=== PATIENT | female | born 1985 | race Caucasian/White ===

== ENCOUNTER 2017-08-25 08:00 | Outpatient (CLI) | payer OTHER | END 2017-08-25 08:01 | disposition home or self-care (01) | LOC: LAB.R 08:00 | PROVIDERS: ATTEND Nurse Practitioner Primary Care | DX: R07.89 Other chest pain (principal) | CPT/HCPCS: 84484 ==

== ENCOUNTER 2019-03-28 17:40 | Outpatient (CLI) | payer OTHER ==
--- NOTE | 2019-03-29 00:50 | XRAY Report ---
Reason: COUGH Procedure Date: 03/28/2019 Accession Number: [id number] / [id number] Procedure: XR - Chest 2 View X-Ray CPT Code: 50116 FULL RESULT: EXAM: CHEST RADIOGRAPHY EXAM DATE: 03/28/2019 05:46 PM. CLINICAL HISTORY: COUGH. Productive cough for 6 weeks. COMPARISON: None. TECHNIQUE: 2 views. FINDINGS: Lungs/Pleura: No focal opacities evident. No pleural effusion. No pneumothorax. Normal volumes. Mediastinum: Heart and mediastinal contours are unremarkable. IMPRESSION: Normal 2-view chest radiography. RADIA
== END 2019-03-28 17:41 | disposition home or self-care (01) ==
LOC: DI 17:40
PROVIDERS: ATTEND Nurse Practitioner Family
DX: R05 Cough (principal)
CPT/HCPCS: 71046

== ENCOUNTER 2019-09-17 14:07 | Outpatient (CLI) | payer OTHER ==
--- NOTE | 2019-09-17 16:21 | Ultrasound Report ---
Reason: POSITIVE TEST Procedure Date: 09/17/2019 Accession Number: [id number] / [id number] Procedure: US - OB First Trimester CPT Code: Final Report FULL RESULT: EXAM: FIRST TRIMESTER OBSTETRIC ULTRASOUND (Less than 11 weeks) EXAM DATE: 09/17/2019 02:47 PM. CLINICAL HISTORY: Positive test. LMP: 07/29/2019. COMPARISONS: None available. TECHNIQUE: Transabdominal and transvaginal ultrasound examination with static image documentation. CLINICAL DATES: EGA 7 weeks 1 day with YANNI 05/04/2020 based on LMP. ASSESSMENT: Gestational Sac: Single intrauterine. Mean gestational sac diameter: 24.3 mm = 7 weeks 3 days. Embryo: CRL (crown-rump length) 8.2 mm = 6 weeks 5 days. Cardiac activity: 139 beats per minute. Yolk sac: 2.3 mm. Amniotic fluid: Not accurately assessed at this gestational age. Early placenta: Not visible at this gestational age. Other: And inferior left perigestational collection measures 1.5 x 0.8 x 0.9 cm. MATERNAL STRUCTURES: Uterus: Anteverted. Unremarkable. Cervix: Closed. Nabothian cysts are present. Right Ovary/Adnexa: The ovary measures 3.7 x 1.9 x 1.5 cm, volume 5.4 cc. Unremarkable. Left Ovary/Adnexa: The ovary measures 2.7 x 3.6 x 2.3 cm, volume 11.8 cc. A corpus luteum measures 2 x 2.3 x 1.3 cm. Free Fluid: Present, trace volume. Other: None. IMPRESSION: 1. Single viable intrauterine at EGA 6 weeks 5 days with YANNI 05/07/2020 based on crown-rump length, which is concordant with clinical dates. 2. Assigned dating is YANNI 7 weeks 1 day based on LMP. 3. There is a small perigestational collection measuring 1.5 x 0.8 x 0.9 cm. RADIA
== END 2019-09-17 14:08 | disposition home or self-care (01) ==
LOC: DI 14:07
PROVIDERS: ATTEND Nurse Practitioner Obstetrics & Gynecology
DX: Z32.01 Encounter for pregnancy test, result positive (principal)
CPT/HCPCS: 76801; 76817

== ENCOUNTER 2019-09-22 11:15 | Outpatient (CLI) | payer OTHER ==
[2019-09-22 15:04] LABS: MUDS CUTOFF CONCENTRATIONS CUTOFF CONC BELOW:
[2019-09-22 15:29] LABS: BILIRUBIN,URINE NEGATIVE (NEGATIVE); GLUCOSE, URINE (UA) NEGATIVE (NEGATIVE); KETONES,URINE (UA) NEGATIVE (NEGATIVE); LEUKOCYTE ESTERASE, URINE NEGATIVE (NEGATIVE); NITRITE,URINE NEGATIVE (NEGATIVE); OCCULT BLOOD,URINE NEGATIVE (NEGATIVE); PROTEIN,URINE NEGATIVE (NEGATIVE); UROBILINOGEN,URINE 0.2 (NORMAL) E.U./dL (NORMAL)
[2019-09-22 15:40] LABS: CLARITY,URINE CLEAR (CLEAR)
[2019-09-22 16:08] LABS: AMPHETAMINE SCREEN,URINE NEGATIVE (NEGATIVE); BENZODIAZEPINES SCREEN, URINE NEGATIVE (NEGATIVE); COCAINE SCREEN URINE NEGATIVE (NEGATIVE); METHADONE SCREEN, URINE NEGATIVE (NEGATIVE); METHAMPHETAMINES SCREEN, URINE NEGATIVE (NEGATIVE); OPIATE SCREEN, URINE NEGATIVE (NEGATIVE); OXYCODONE SCREEN, URINE NEGATIVE (NEGATIVE); PROPOXYPHENE SCREEN, URINE NEGATIVE (NEGATIVE); TRICYCLIC ANTIDEPRESSANT,URINE NEGATIVE (NEGATIVE)
[2019-09-22 20:45] LABS: TRICHOMONAS VAGINALIS DNA NEGATIVE (NEGATIVE)
== END 2019-09-22 23:59 | disposition home or self-care (01) ==
LOC: LAB.R 11:15
PROVIDERS: ATTEND Obstetrics & Gynecology
DX: Z36.89 Encounter for other specified antenatal screening (principal); Z11.3 Encounter for screening for infections with a predominantly sexual mode of transmission
CPT/HCPCS: 80306; 81001; 81003; 87086; 87491; 87591; 87661

== ENCOUNTER 2019-10-13 08:07 | Outpatient (CLI) | payer OTHER ==
[2019-10-13 09:25] LABS: BASOPHILS % (AUTO) 0.4 %; EOSINOPHILS # (AUTO) 0.2 10^3/uL (0.0-0.7); EOSINOPHILS % (AUTO) 2.8 %; HGB - HEMOGLOBIN 12.9 g/dL (12.0-16.0); LYMPHOCYTES # (AUTO) 1.9 10^3/uL (1.5-3.5); MEAN CORPUSCULAR HEMOGLOBIN 28.1 pg (27.0-31.0); MEAN CORPUSCULAR VOLUME 85.2 fL (81.0-99.0); MEAN PLATELET VOLUME 9.8 fL (7.9-10.8); MONOCYTES # (AUTO) 0.8 10^3/uL (0.0-1.0); NEUTROPHILS # (AUTO) 4.9 10^3/uL (1.5-6.6); NEUTROPHILS % (AUTO) 62.4 %; PLT - PLATELET COUNT 255 10^3/uL (130-450); RED BLOOD COUNT 4.59 10^6/uL (4.20-5.40); WHITE BLOOD COUNT 7.8 x10^3/uL (4.8-10.8)
[2019-10-13 09:56] LABS: ALBUMIN 3.7 g/dL (3.2-5.5); ALBUMIN/GLOBULIN RATIO 1.2 (1.0-2.2); BILIRUBIN,TOTAL 0.8 mg/dL (0.2-1.0); CALCIUM 8.9 mg/dL (8.5-10.3); CREATININE 0.5 mg/dL (0.4-1.0); TOTAL PROTEIN 6.9 g/dL (6.7-8.2)
[2019-10-13 09:59] LABS: CREATININE,URINE 221.9 mg/dL; PROTEIN/CREATININE RATIO,URINE 0.1 (<=0.2)
[2019-10-13 10:09] LABS: HB2 TOTAL 13.5 g/dL; HEMOGLOBIN A1C 0.46 g/dL; HEMOGLOBIN A1C % 5.3 % (4.6-6.2)
[2019-10-14 12:39] LABS: HEPATITIS B SURFACE ANTIGEN NON-REACTIVE (NON-REACTIVE); HEPATITIS C ANTIBODY NON-REACTIVE (NON-REACTIVE)
[2019-10-14 13:35] LABS: HIV AG/AB 4TH GEN NON-REACTIVE (NON-REACTIVE)
== END 2019-10-13 08:08 | disposition home or self-care (01) ==
LOC: LAB 08:07
PROVIDERS: ATTEND Obstetrics & Gynecology
DX: R03.0 Elevated blood-pressure reading, without diagnosis of hypertension (principal); E66.9 Obesity, unspecified; Z36.89 Encounter for other specified antenatal screening
CPT/HCPCS: 36415; 80053; 81599; 82570; 83036; 84156; 84443; 85025; 86762; 86803; 86850; 86900; 86901; 87340; 87389

== ENCOUNTER 2019-11-20 12:27 | Outpatient (CLI) | payer OTHER ==
--- NOTE | 2019-11-20 14:47 | CT Report ---
Reason: WHEEZING, ASTHMA Procedure Date: 11/20/2019 Accession Number: [id number] / [id number] Procedure: CT - CHEST WO CPT Code: Final Report FULL RESULT: EXAM: CT CHEST EXAM DATE: 11/20/2019 12:59 PM. CLINICAL HISTORY: Wheezing. Asthma. COMPARISONS: None. TECHNIQUE: Routine helical CT imaging was performed through the chest. IV contrast: None. Reconstructions: Coronal and sagittal. In accordance with CT protocol optimization, one or more of the following dose reduction techniques were utilized for this exam: automated exposure control, adjustment of mA and/or KV based on patient size, or use of iterative reconstructive technique. FINDINGS: Lungs/Pleura: No consolidation, effusion, or pneumothorax. No bronchiectasis or significant bronchial wall thickening. A 5 mm average diameter pulmonary nodule is seen in the left lower lobe (image 205/4). Mediastinum: Normal. No adenopathy or masses. The heart and great vessels are normal. Bones: Unremarkable. Visualized Abdomen: Unremarkable. Other: None. IMPRESSION: 1. No acute cardiopulmonary abnormality identified. 2. Incidentally noted 5 mm left lower lobe pulmonary nodule, very likely benign. No followup is recommended per Fleischner Society guidelines assuming patient is low risk for lung cancer. RADIA
== END 2019-11-20 12:28 | disposition home or self-care (01) ==
LOC: DI 12:27
PROVIDERS: ATTEND Obstetrics & Gynecology
DX: O99.512 Diseases of the respiratory system complicating pregnancy, second trimester (principal); J45.909 Unspecified asthma, uncomplicated; Z3A.15 15 weeks gestation of pregnancy
CPT/HCPCS: 71250

== ENCOUNTER 2019-12-08 11:17 | Outpatient (CLI) | payer OTHER ==
--- NOTE | 2019-12-11 02:28 | Ultrasound Report ---
Reason: Procedure Date: 12/08/2019 Accession Number: [id number] / [id number] Procedure: US - OB Detailed Eval CPT Code: Final Report FULL RESULT: EXAM: COMPLETE OBSTETRICAL ULTRASOUND EXAM DATE: 12/08/2019 02:24 PM. CLINICAL HISTORY: anatomic survey. COMPARISON: 09/17/2019. TECHNIQUE: Real-time sonographic evaluation of the fetus performed by the rotary drier operator. Multiple fuels sales representative static images were saved for review. DATING: Established EGA 18 weeks 6 days with YANNI 05/04/2020 based on LMP. EGA 18 weeks 3 days with YANNI 05/07/2020 based on previous sonogram. EGA 19 weeks 3 days with YANNI 04/30/2020 based on the current ultrasound. GENERAL EVALUATION Gómez . Cardiac activity: 151 bpm. movement: Visualized. Presentation: Cephalic. Placenta: Anterior position. No evidence for previa. Umbilical cord: 3 vessel cord. Central placental cord origin. Amniotic fluid: Subjectively normal. MVP 4.4 cm. BIOMETRY Bi-Parietal Diameter (BPD): 4.64 cm, 20 weeks 0 days Head Circumference (HC): 16.89 cm, 19 weeks 4 days Abdominal Circumference (AC): 13.01 cm, 18 weeks 4 days Femur Length (FL): 3.06 cm, 19 weeks 3 days Estimated Weight: 272 g, 83rd percentile for 18 weeks 3 days. ANATOMY The intracranial structures, profile, face/nose/lips, 4 chamber heart and outflow tracts, stomach, abdominal wall and cord insertion, diaphragm, kidneys, bladder, and extremities were visualized and demonstrate no abnormality. Visualization of the spine is limited by positioning. MATERNAL STRUCTURES Uterus: Unremarkable. Cervix: Long and closed. Transabdominal length 5.6 cm. Right ovary/adnexa: Unremarkable. Left ovary/adnexa: Unremarkable. Free fluid: None. IMPRESSION: 1. Gómez live intrauterine with gestational age 18 weeks 3 days based on initial sonogram. 2. Estimated weight is within expected limits for assigned dating. 3. Limited visualization of the spine, secondary to positioning. Otherwise, the anatomic survey appears unremarkable. RADIA
== END 2019-12-08 11:18 | disposition home or self-care (01) ==
LOC: DI 11:17
PROVIDERS: ATTEND Obstetrics & Gynecology
DX: Z36.89 Encounter for other specified antenatal screening (principal)
CPT/HCPCS: 76811

== ENCOUNTER 2019-12-28 08:47 | Outpatient (CLI) | payer OTHER ==
--- NOTE | 2019-12-29 13:41 | Ultrasound Report ---
Reason: SCREENING, INCOMPLETE FAS Procedure Date: 12/28/2019 Accession Number: [id number] / [id number] Procedure: US - OB F/U or Repeat CPT Code: Final Report FULL RESULT: EXAM: FOLLOW-UP OBSTETRICAL ULTRASOUND EXAM DATE: 12/28/2019 08:36 AM. CLINICAL HISTORY: SCREENING, INCOMPLETE FAS. COMPARISON: OB DETAILED EVAL 12/08/2019 11:51 AM. TECHNIQUE: Real-time sonographic evaluation of the fetus performed by the sheeter machine operator. Additional transvaginal imaging to more accurately evaluate cervical length/placental position/etc. Multiple wine sales representative static images were saved for review. DATING: Established EGA 21 weeks 5 days with YANNI 05/04/2020 based on LMP/provider stated. EGA 21 weeks 2 days with YANNI 05/07/2020 based on 09/17/2019 ultrasound. GENERAL EVALUATION [place] . Cardiac activity: 160 bpm. movement: Visualized. Presentation: Cephalic. Placenta: Anterior position. Amniotic fluid: Normal. RAMÓN cm. MVP 4.25 cm. ANATOMY spine, cardiac exam (four-chamber, LVOT, RVOT, no pericardial effusion), nose lips unremarkable. IMPRESSION: 1. Gómez live intrauterine with gestational age 21 weeks 5 days based on assigned dating. 2. Follow-up shows normal spine, cardiac exam, face. RADIA
== END 2019-12-28 08:48 | disposition home or self-care (01) ==
LOC: DI 08:47
PROVIDERS: ATTEND Obstetrics & Gynecology
DX: Z36.89 Encounter for other specified antenatal screening (principal)
CPT/HCPCS: 76816

== ENCOUNTER 2020-02-02 07:39 | Outpatient (CLI) | payer OTHER ==
[2020-02-02 08:58] LABS: HGB - HEMOGLOBIN 11.1 g/dL (12.0-16.0); MEAN CORPUSCULAR HGB CONC 31.8 g/dL (32.0-36.0); MEAN CORPUSCULAR VOLUME 84.9 fL (81.0-99.0); RED BLOOD COUNT 4.11 10^6/uL (4.20-5.40); WHITE BLOOD COUNT 9.4 x10^3/uL (4.8-10.8)
[2020-02-02 09:09] LABS: ALBUMIN 3.3 g/dL (3.2-5.5); ALBUMIN/GLOBULIN RATIO 1.1 (1.0-2.2); BILIRUBIN,TOTAL 0.5 mg/dL (0.2-1.0); CALCIUM 8.5 mg/dL (8.5-10.3); CREATININE 0.4 mg/dL (0.4-1.0); TOTAL PROTEIN 6.4 g/dL (6.7-8.2); URIC ACID 3.5 mg/dL (2.6-7.2)
[2020-02-02 09:12] LABS: CREATININE,URINE 17.2 mg/dL
[2020-02-02 10:14] LABS: TOTAL PROTEIN,URINE TIMED < 6 mg/dL
== END 2020-02-02 07:40 | disposition home or self-care (01) ==
LOC: LAB 07:39
PROVIDERS: ATTEND Obstetrics & Gynecology
DX: O09.91 Supervision of high risk pregnancy, unspecified, first trimester (principal); Z3A.00 Weeks of gestation of pregnancy not specified; O26.891 Other specified pregnancy related conditions, first trimester; R03.0 Elevated blood-pressure reading, without diagnosis of hypertension
CPT/HCPCS: 36415; 80053; 82570; 82950; 84156; 84550; 85027; 86850

== ENCOUNTER 2020-02-16 07:45 | Outpatient (CLI) | payer OTHER | END 2020-02-16 07:46 | disposition home or self-care (01) | LOC: LAB 07:45 | PROVIDERS: ATTEND Obstetrics & Gynecology | DX: O09.91 Supervision of high risk pregnancy, unspecified, first trimester (principal) | CPT/HCPCS: 36415; 82951; 82952 ==

== ENCOUNTER 2020-03-08 14:59 | Outpatient (CLI) | payer OTHER ==
--- NOTE | 2020-03-08 16:40 | Ultrasound Report ---
PROCEDURE: OB F/U or Repeat INDICATIONS: GESTATIONAL DIABETES, SUPERVISION OF HIGH RISK PRE OUTSIDE/PRIOR DATING DATA: Last menstrual period (LMP): 07/29/2019. LMP-based estimated date of delivery (YANNI): 05/04/2020. First dating scan (date and location): 09/17/2019. Estimated date of delivery (YANNI) from first dating scan: 05/07/2020. TECHNIQUE: Real-time scanning was performed of the fetus, with image documentation and biometric measurements. COMPARISON: Obstetrical ultrasounds 09/17/2019, 12/08/2019 and 12/28/2019. FINDINGS: General: A single living intrauterine gestation is present. Presentation: Vertex Placenta: Placental position is anterior, without previa. Amniotic fluid index: 13.7 cm, normal is 5-24 cm. heart rate: 140 beats per minute. Maternal cervical canal: Not measured. Biophysical profile: Tone: 2 points. Movement: 2 points. Respiration: 2 points. Largest pocket of fluid: 2 points. Largest pocket 6 cm Other: Not applicable. IMPRESSION: 1. Single living intrauterine . 2. Normal amniotic fluid index. 3. Biophysical profile score 8/8. Reviewed by: Laney Schneider MD, PhD on 03/08/2020 4:38 PM PDT Approved by: Laney Schneider MD, PhD on 03/08/2020 4:38 PM PDT Station ID: [id number]
== END 2020-03-08 15:00 | disposition home or self-care (01) ==
LOC: DI 14:59
PROVIDERS: ATTEND Advanced Practice Midwife
DX: O24.419 Gestational diabetes mellitus in pregnancy, unspecified control (principal); O09.93 Supervision of high risk pregnancy, unspecified, third trimester
CPT/HCPCS: 76816

== ENCOUNTER 2020-03-08 15:50 | Outpatient (CLI) | payer OTHER ==
[2020-03-08 16:56] LABS: BASOPHILS % (AUTO) 0.1 %; EOSINOPHILS # (AUTO) 0.1 10^3/uL (0.0-0.7); EOSINOPHILS % (AUTO) 0.6 %; HGB - HEMOGLOBIN 11.4 g/dL (12.0-16.0); LYMPHOCYTES % (AUTO) 22.3 %; MEAN CORPUSCULAR HEMOGLOBIN 26.7 pg (27.0-31.0); MEAN CORPUSCULAR HGB CONC 31.8 g/dL (32.0-36.0); MEAN CORPUSCULAR VOLUME 83.8 fL (81.0-99.0); MEAN PLATELET VOLUME 10.3 fL (7.9-10.8); MONOCYTES # (AUTO) 0.8 10^3/uL (0.0-1.0); MONOCYTES % (AUTO) 9.1 %; NEUTROPHILS # (AUTO) 6.1 10^3/uL (1.5-6.6); NEUTROPHILS % (AUTO) 67.6 %; PLT - PLATELET COUNT 258 10^3/uL (130-450); RED BLOOD COUNT 4.27 10^6/uL (4.20-5.40); RED CELL DISTRIBUTION WIDTH 16.1 % (12.0-15.0); WHITE BLOOD COUNT 9.1 x10^3/uL (4.8-10.8)
[2020-03-08 17:08] LABS: ALBUMIN 3.2 g/dL (3.2-5.5); BILIRUBIN,TOTAL 0.7 mg/dL (0.2-1.0); CALCIUM 8.7 mg/dL (8.5-10.3); CREATININE 0.5 mg/dL (0.4-1.0); TOTAL PROTEIN 6.5 g/dL (6.7-8.2)
[2020-03-08 17:32] LABS: CREATININE,URINE 53.2 mg/dL
[2020-03-08 17:34] VITALS: BP 143/74
[2020-03-08 17:53] LABS: TOTAL PROTEIN,URINE TIMED < 6 mg/dL
--- NOTE | 2020-03-08 19:31 | PROCEDURE REPORT ---
- HPI Diagnosis/Indication for NST: Gestational Diabetes Current EDU 05/04/20 Gestation 31 Weeks and 6 Days 1 Para 0 Vital Signs Temperature 98.2 F 03/08/20 16:05 Heart Rate 86 03/08/20 16:05 Respiratory Rate 03/08/20 16:05 Blood Pressure 156/66 H 03/08/20 16:05 O2 Saturation 100 03/08/20 16:05 Temperature 98.2 F 03/08/20 16:05 Heart Rate 86 03/08/20 16:05 Respiratory Rate 03/08/20 16:05 Blood Pressure 143/74 H 03/08/20 17:30 O2 Saturation 100 03/08/20 16:05 - NST Procedure NST Procedure Start Date 03/08/20 Start Time 15:55 Stop Time 16:24 Vibroacoustic Stimulation Used No Patient States Movement Yes - Results and Plan Findings/Impression: Here for NST for A2GDM. Elevated BP to mild range followed by normal BP. No PIH sx. P:C neg CMP nl Hct 35, plts 258 NST category 1, toco neg chronic HTN with BP in acceptable zone Taking BPs at home. F/u in 1w.
== END 2020-03-08 18:05 | disposition home or self-care (01) ==
LOC: FBP 15:50 → WFO 15:50
PROVIDERS: ATTEND Obstetrics & Gynecology
DX: O24.415 Gestational diabetes mellitus in pregnancy, controlled by oral hypoglycemic drugs (principal); O10.913 Unspecified pre-existing hypertension complicating pregnancy, third trimester; Z3A.31 31 weeks gestation of pregnancy; O09.90 Supervision of high risk pregnancy, unspecified, unspecified trimester; Z79.84 Long term (current) use of oral hypoglycemic drugs
CPT/HCPCS: 36415; 59025; 76816; 80053; 82570; 84156; 85025

== ENCOUNTER 2020-03-14 15:26 | Outpatient (CLI) | payer OTHER ==
[2020-03-14 15:44] VITALS: BP 128/78
== END 2020-03-14 16:16 | disposition home or self-care (01) ==
LOC: FBP 15:26 → WFO 15:26
PROVIDERS: ATTEND Advanced Practice Midwife
DX: O09.93 Supervision of high risk pregnancy, unspecified, third trimester (principal); O24.419 Gestational diabetes mellitus in pregnancy, unspecified control; Z3A.00 Weeks of gestation of pregnancy not specified
CPT/HCPCS: 59025; 76816

== ENCOUNTER 2020-03-25 19:58 | Outpatient (CLI) | payer OTHER ==
[2020-03-25 21:19] VITALS: BP 128/72
--- NOTE | 2020-03-25 23:48 | PROCEDURE REPORT ---
- HPI Diagnosis/Indication for NST: Gestational Hypertension Current EDU 05/04/20 Gestation 34 Weeks and 2 Days 1 Para 1 Vital Signs Temperature 98.1 F 03/25/20 19:50 Heart Rate 78 03/25/20 19:50 Respiratory Rate 16 03/25/20 19:50 Blood Pressure 128/72 03/25/20 19:50 O2 Saturation 100 03/25/20 19:50 Temperature 98.1 F 03/25/20 19:50 Heart Rate 78 03/25/20 19:50 Respiratory Rate 16 03/25/20 19:50 Blood Pressure 128/72 03/25/20 19:50 O2 Saturation 100 03/25/20 19:50 - NST Procedure NST Procedure Start Date 03/25/20 Start Time 19:58 Stop Time 21:39 Patient States Movement Yes EFM 145 mod gabriel 15x15 accels no decels TOCO quiet - Results and Plan Findings/Impression: 34 yo at 34+2 wga with complicated by A2DM and CHTN here for NST Cat I tracing Cont with twice weekly NST and weekly RAMÓN
== END 2020-03-25 20:38 | disposition home or self-care (01) ==
LOC: WFO 19:58 → FBP 20:44 → WFO 20:44
PROVIDERS: ATTEND Obstetrics & Gynecology
DX: O13.3 Gestational [pregnancy-induced] hypertension without significant proteinuria, third trimester (principal); O10.913 Unspecified pre-existing hypertension complicating pregnancy, third trimester; Z3A.34 34 weeks gestation of pregnancy
CPT/HCPCS: 59025

== ENCOUNTER 2020-03-29 09:23 | Outpatient (CLI) | payer OTHER ==
[2020-03-29 10:19] VITALS: BP 142/77
--- NOTE | 2020-03-29 17:06 | Ultrasound Report ---
PROCEDURE: OB Limited INDICATIONS: GESTATIONAL DIABETES, SUPER OF HIGH RISK OUTSIDE/PRIOR DATING DATA: Last menstrual period (LMP): 07/29/2019. LMP-based estimated date of delivery (YANNI): 05/04/2020. First dating scan (date and location): 09/17/2019. Estimated date of delivery (YANNI) from first dating scan: 05/07/2020. TECHNIQUE: Real-time scanning was performed of the fetus, with image documentation. COMPARISON: OB ultrasound 03/23/2020 FINDINGS: A single living intrauterine gestation is present. Presentation: Cephalic Placenta: Placental position is anterior, without previa. Amniotic fluid index: 11.5 cm, 24th percentile for gestational age. heart rate: 149 beats per minutes. Maternal cervical canal: Not assessed Estimated gestational age from initial scan: 34 weeks 3 days BPP: Tone: 2 Movement: 2 Respiration: 2 Largest pocket 4.7 cm. IMPRESSION: 1. Single intrauterine with BPP of 8 out of 8. Reviewed by: Tarah Alfaro MD on 03/29/2020 5:05 PM PDT Approved by: Tarah Alfaro MD on 03/29/2020 5:05 PM PDT Station ID: [id number]
--- NOTE | 2020-03-31 04:27 | Labor Flowsheet ---
Labor Flowsheet Datetime Report Generated by CPN: 03/31/2020 04:26 Datetime: 03/31/2020 04:19 VITAL SIGNS NBP Sys/Laury/Mean (mmHg): 123 : 76 : 88 Pulse: 97 COMMUNICATION LaborFlag: Labor
== END 2020-03-29 10:45 | disposition home or self-care (01) ==
LOC: DI 09:23 → FBP 09:58 → DI 10:45
PROVIDERS: ATTEND Obstetrics & Gynecology
DX: O24.419 Gestational diabetes mellitus in pregnancy, unspecified control (principal); O09.93 Supervision of high risk pregnancy, unspecified, third trimester; Z3A.32 32 weeks gestation of pregnancy
CPT/HCPCS: 59025; 76815

== ENCOUNTER 2020-04-01 19:04 | Outpatient (CLI) | payer OTHER ==
[2020-04-01 19:30] VITALS: BP 140/70
--- NOTE | 2020-04-27 14:55 | PROCEDURE REPORT ---
- HPI Diagnosis/Indication for NST: Pre- Hypertension Current EDU 05/04/20 Gestation 35 Weeks and 2 Days 1 Para 0 Vital Signs Temperature 98.2 F 04/01/20 19:19 Heart Rate 82 04/01/20 19:19 Respiratory Rate 16 04/01/20 19:19 Blood Pressure 140/70 H 04/01/20 19:19 O2 Saturation 99 04/01/20 19:19 Temperature 98.2 F 04/01/20 19:19 Heart Rate 82 04/01/20 19:19 Respiratory Rate 16 04/01/20 19:19 Blood Pressure 140/70 H 04/01/20 19:19 O2 Saturation 99 04/01/20 19:19 - NST Procedure NST Procedure Start Date 04/01/20 Start Time 19:25 Stop Time 19:46 Vibroacoustic Stimulation Used No Patient States Movement Yes EFM 130 mod gabriel 15x15 accels no decels TOCO: quiet - Results and Plan Findings/Impression: Cat I tracing Cont with twice weekly NST and weekly RAMÓN
== END 2020-04-01 19:50 | disposition home or self-care (01) ==
LOC: WFO 19:04 → FBP 19:07 → WFO 19:50
PROVIDERS: ATTEND Obstetrics & Gynecology
DX: O10.913 Unspecified pre-existing hypertension complicating pregnancy, third trimester (principal); Z3A.35 35 weeks gestation of pregnancy
CPT/HCPCS: 59025

== ENCOUNTER 2020-04-05 09:23 | Outpatient (CLI) | payer OTHER ==
--- NOTE | 2020-04-05 15:50 | Ultrasound Report ---
PROCEDURE: OB Limited INDICATIONS: GESTATIONAL DIABETES, SUPER OF HIGH RISK OUTSIDE/PRIOR DATING DATA: Last menstrual period (LMP): 07/29/2019. LMP-based estimated date of delivery (YANNI): 05/04/2020. First dating scan (date and location): 09/17/2011. Estimated date of delivery (YANNI) from first dating scan: 05/07/2020. TECHNIQUE: Real-time scanning was performed of the fetus, with image documentation. COMPARISON: OB ultrasound 03/08/2020, , 03/23/2020, 03/29/2020 FINDINGS: A single living intrauterine gestation is present. Presentation: Cephalic Placenta: Placental position is anterior, without previa. Amniotic fluid index: 11.7 cm, 25th percentile for gestational age. Largest pocket 5.9 cm heart rate: 173 beats per minutes. Maternal cervical canal: 4.5 cm long; normal length is 2.5 cm or more. Estimated gestational age from initial scan: 33 weeks 4 days BPP: Tone: 2 Movement: 2 Respiration: 2 Largest pocket: 5.9 cm. IMPRESSION: 1. Single live intrauterine with ultrasound gestational age 33 weeks for dates. 2. BPP 8 out of 8 Reviewed by: Tarah Alfaro MD on 04/05/2020 3:49 PM PDT Approved by: Tarah Alfaro MD on 04/05/2020 3:49 PM PDT Station ID: [id number]
== END 2020-04-05 09:24 | disposition home or self-care (01) ==
LOC: DI 09:23
PROVIDERS: ATTEND Advanced Practice Midwife
DX: O24.419 Gestational diabetes mellitus in pregnancy, unspecified control (principal); O09.90 Supervision of high risk pregnancy, unspecified, unspecified trimester; Z3A.33 33 weeks gestation of pregnancy
CPT/HCPCS: 76815

== ENCOUNTER 2020-04-05 10:08 | Outpatient (CLI) | payer OTHER ==
[2020-04-05 10:40] VITALS: BP 131/73
--- NOTE | 2020-04-06 12:10 | PROCEDURE REPORT ---
- HPI Diagnosis/Indication for NST: Pre- Hypertension Current EDU 05/04/20 Gestation 35 Weeks and 6 Days 1 Para 0 Vital Signs Temperature 97.3 F L 04/05/20 10:35 Heart Rate 83 04/05/20 10:35 Respiratory Rate 16 04/05/20 10:35 Blood Pressure 131/73 H 04/05/20 10:35 O2 Saturation 100 04/05/20 10:35 Temperature 97.3 F L 04/05/20 10:35 Heart Rate 83 04/05/20 10:35 Respiratory Rate 16 04/05/20 10:35 Blood Pressure 131/73 H 04/05/20 10:35 O2 Saturation 100 04/05/20 10:35 - NST Procedure NST Procedure Start Date 04/05/20 Start Time 10:23 Stop Time 10:50 Vibroacoustic Stimulation Used No Patient States Movement No EFM 145 mod [id number] accels no decels TOCO: quiet - Results and Plan Findings/Impression: 34 yo at 35+6 with CHTN and GDM here for NST Cat I tracing Cont with weekly RAMÓN and twice weekly NST DC to home
== END 2020-04-05 10:55 | disposition home or self-care (01) ==
LOC: WFO 10:08 → FBP 10:10 → WFO 10:55
PROVIDERS: ATTEND Obstetrics & Gynecology
DX: O10.913 Unspecified pre-existing hypertension complicating pregnancy, third trimester (principal); O24.419 Gestational diabetes mellitus in pregnancy, unspecified control; Z3A.35 35 weeks gestation of pregnancy; O09.90 Supervision of high risk pregnancy, unspecified, unspecified trimester
CPT/HCPCS: 59025; 76815

== ENCOUNTER 2020-04-08 17:26 | Outpatient (CLI) | payer OTHER ==
[2020-04-08 19:23] VITALS: BP 137/75
--- NOTE | 2020-04-17 11:56 | PROCEDURE REPORT ---
- HPI Diagnosis/Indication for NST: Gestational Hypertension Current EDU 05/04/20 Gestation 36 Weeks and 2 Days 1 Para 0 Vital Signs Temperature 36.8 C 04/08/20 17:43 Heart Rate 86 04/08/20 17:43 Respiratory Rate 18 04/08/20 17:43 O2 Saturation 100 04/08/20 17:43 Temperature 36.8 C 04/08/20 17:43 Heart Rate 86 04/08/20 17:43 Respiratory Rate 18 04/08/20 17:43 Blood Pressure 137/75 H 04/08/20 18:05 O2 Saturation 100 04/08/20 17:43 - NST Procedure NST Procedure Start Date 04/08/20 Start Time 18:20 Stop Time 18:40 Vibroacoustic Stimulation Used Yes: Prior at 17:59, then immediately followed by 30 sec variable decel Patient States Movement Yes - Results and Plan Findings/Impression: REACTIVE NST WITH SOLITARY VARIABLE DECELERATION Plan: CONTINUE ANTINATAL TESTING
--- NOTE | 2020-04-17 11:59 | PROCEDURE REPORT ---
- HPI Current EDU 05/04/20 Gestation 36 Weeks and 2 Days 1 Para 0 Vital Signs Temperature 36.8 C 04/08/20 17:43 Heart Rate 86 04/08/20 17:43 Respiratory Rate 18 04/08/20 17:43 O2 Saturation 100 04/08/20 17:43 Temperature 36.8 C 04/08/20 17:43 Heart Rate 86 04/08/20 17:43 Respiratory Rate 18 04/08/20 17:43 Blood Pressure 137/75 H 04/08/20 18:05 O2 Saturation 100 04/08/20 17:43 - NST Procedure NST Procedure Start Date 04/08/20 Start Time 18:20 Stop Time 18:40 Vibroacoustic Stimulation Used Yes: Prior at 17:59, then immediately followed by 30 sec variable decel Patient States Movement Yes - Results and Plan Findings/Impression: REACTIVE NST Plan: CONTINUE TESTING
--- NOTE | 2020-04-17 12:03 | PROCEDURE REPORT ---
- HPI Diagnosis/Indication for NST: Gestational Diabetes Current EDU 05/04/20 Gestation 36 Weeks and 2 Days 1 Para 0 Vital Signs Temperature 36.8 C 04/08/20 17:43 Heart Rate 86 04/08/20 17:43 Respiratory Rate 18 04/08/20 17:43 O2 Saturation 100 04/08/20 17:43 Temperature 36.8 C 04/08/20 17:43 Heart Rate 86 04/08/20 17:43 Respiratory Rate 18 04/08/20 17:43 Blood Pressure 137/75 H 04/08/20 18:05 O2 Saturation 100 04/08/20 17:43 - NST Procedure NST Procedure Start Date 04/08/20 Start Time 18:20 Stop Time 18:40 Vibroacoustic Stimulation Used Yes: Prior at 17:59, then immediately followed by 30 sec variable decel Patient States Movement Yes - Results and Plan Findings/Impression: REACTIVE NST Plan: CONTINUE TESTING
== END 2020-04-08 18:55 | disposition home or self-care (01) ==
LOC: WFO 17:26 → FBP 17:29 → WFO 18:55
PROVIDERS: ATTEND Obstetrics & Gynecology
DX: O13.3 Gestational [pregnancy-induced] hypertension without significant proteinuria, third trimester (principal); Z3A.36 36 weeks gestation of pregnancy
CPT/HCPCS: 59025

== ENCOUNTER 2020-04-12 09:04 | Outpatient (CLI) | payer OTHER ==
[2020-04-12 10:18] VITALS: BP 138/69
--- NOTE | 2020-04-12 16:28 | Ultrasound Report ---
PROCEDURE: OB Biophysical Profile INDICATIONS: BPP RAMÓN.DGM OUTSIDE/PRIOR DATING DATA: Last menstrual period (LMP): 07/19/2019. LMP-based estimated date of delivery (YANNI): 05/04/2020. First dating scan (date and location): 09/17/2019. Estimated date of delivery (YANNI) from first dating scan: 05/07/2020. TECHNIQUE: Real-time scanning was performed of the fetus, with image documentation and biometric josh surements. Biophysical profile was also obtained. Endovaginal scanning: Performed COMPARISON: 04/05/2020, 03/29/2020, 03/23/2020, 03/14/2020, 03/08/2020, 12/28/2019, 12/08/2019, and 09/17/2019 FINDINGS: General: A single living intrauterine gestation is present. Presentation: Cephalic Placenta: Placental position is anterior, without previa. Amniotic fluid index: 10.1 cm, 17th percentile for gestational age. heart rate: 155 beats per minute. Maternal cervical canal: ] And 4.4 cm long; normal length is 2.5 cm or more. Biophysical profile: Tone: 2 points. Movement: 2 points. Respiration: 2 points. Largest pocket of fluid: 2 points. IMPRESSION: 1. Single living intrauterine . 2. Biophysical profile score 8 out of 8. 3. Amniotic fluid index 10.1 cm, 17th percentile for gestational age. Reviewed by: Laney Schneider MD, PhD on 04/12/2020 4:27 PM PDT Approved by: Laney Schneider MD, PhD on 04/12/2020 4:27 PM PDT Station ID: [id number]
--- NOTE | 2020-04-12 17:32 | PROCEDURE REPORT ---
- HPI Diagnosis/Indication for NST: Gestational Diabetes Current EDU 05/04/20 Gestation 36 Weeks and 6 Days 1 Para 0 Vital Signs Temperature 97.7 F 04/12/20 10:16 Heart Rate 76 04/12/20 10:16 Respiratory Rate 16 04/12/20 10:16 Blood Pressure 138/69 H 04/12/20 10:16 O2 Saturation 100 04/12/20 10:16 Temperature 97.7 F 04/12/20 10:16 Heart Rate 76 04/12/20 10:16 Respiratory Rate 16 04/12/20 10:16 Blood Pressure 138/69 H 04/12/20 10:16 O2 Saturation 100 04/12/20 10:16 - NST Procedure NST Procedure Start Date 04/12/20 Start Time 10:10 Stop Time 10:40 Vibroacoustic Stimulation Used No Patient States Movement No - Results and Plan Findings/Impression: Category 1 NST [place] neg Continue planned surveillance
== END 2020-04-12 10:45 | disposition home or self-care (01) ==
LOC: DI 09:04 → FBP 09:57 → DI 10:45
PROVIDERS: ATTEND Obstetrics & Gynecology
DX: O24.419 Gestational diabetes mellitus in pregnancy, unspecified control (principal); O09.93 Supervision of high risk pregnancy, unspecified, third trimester
CPT/HCPCS: 59025; 76819

== ENCOUNTER 2020-04-15 17:36 | Outpatient (CLI) | payer OTHER ==
[2020-04-15 17:53] VITALS: BP 143/80
--- NOTE | 2020-04-15 18:47 | PROCEDURE REPORT ---
- HPI Diagnosis/Indication for NST: Gestational Diabetes Current EDU 05/04/20 Gestation 37 Weeks and 2 Days 1 Para 0 Vital Signs Temperature 97.9 F 04/15/20 17:52 Heart Rate 80 04/15/20 17:52 Respiratory Rate 18 04/15/20 17:52 Blood Pressure 143/80 H 04/15/20 17:52 O2 Saturation 100 04/15/20 17:52 Temperature 97.9 F 04/15/20 17:52 Heart Rate 81 04/15/20 17:54 Respiratory Rate 18 04/15/20 17:54 Blood Pressure 143/80 H 04/15/20 17:54 O2 Saturation 100 04/15/20 17:54 - NST Procedure NST Procedure Start Date 04/15/20 Start Time 17:46 Stop Time 18:08 Patient States Movement Yes - Results and Plan Findings/Impression: Category 1 NST [place] occasional contractions Plan: continue routine surveillance
== END 2020-04-15 18:15 | disposition home or self-care (01) ==
LOC: WFO 17:36 → FBP 17:38 → WFO 18:15
PROVIDERS: ATTEND Obstetrics & Gynecology
DX: O24.419 Gestational diabetes mellitus in pregnancy, unspecified control (principal); Z3A.37 37 weeks gestation of pregnancy
CPT/HCPCS: 59025

== ENCOUNTER 2020-04-22 17:36 | Outpatient (CLI) | payer OTHER ==
[2020-04-22 18:01] VITALS: BP 130/64
--- NOTE | 2020-06-12 09:21 | PROCEDURE REPORT ---
- HPI Diagnosis/Indication for NST: Gestational Diabetes Current EDU 05/04/20 Gestation 38 Weeks and 2 Days 1 Para 0 Vital Signs Temperature 99.0 F 04/22/20 18:00 Heart Rate 83 04/22/20 18:00 Respiratory Rate 18 04/22/20 18:00 Blood Pressure 130/64 04/22/20 18:00 O2 Saturation 100 04/22/20 18:00 Temperature 99.0 F 04/22/20 18:00 Heart Rate 83 04/22/20 18:00 Respiratory Rate 18 04/22/20 18:00 Blood Pressure 130/64 04/22/20 18:00 O2 Saturation 100 04/22/20 18:00 - NST Procedure NST Procedure Start Date 04/22/20 Start Time 17:51 Stop Time 18:20 Vibroacoustic Stimulation Used No Patient States Movement Yes - Results and Plan Findings/Impression: CAtegory 1 NST Continue planned surveillance
== END 2020-04-22 18:32 | disposition home or self-care (01) ==
LOC: WFO 17:36 → FBP 17:39 → WFO 18:32
PROVIDERS: ATTEND Obstetrics & Gynecology
DX: O24.419 Gestational diabetes mellitus in pregnancy, unspecified control (principal); Z3A.38 38 weeks gestation of pregnancy
CPT/HCPCS: 59025

== ENCOUNTER 2020-04-26 09:44 | Outpatient (CLI) | payer OTHER ==
[2020-04-26 10:57] VITALS: BP 132/77
--- NOTE | 2020-04-26 13:56 | Ultrasound Report ---
PROCEDURE: OB Limited INDICATIONS: GESTATIONAL DIABETES, SUPER OF HIGH RISK OUTSIDE/PRIOR DATING DATA: Last menstrual period (LMP): 07/29/2019. LMP-based estimated date of delivery (YANNI): 05/04/2020. First dating scan (date and location): 09/17/2019. Estimated date of delivery (YANNI) from first dating scan: 05/07/2020. TECHNIQUE: Real-time scanning was performed of the fetus, with image documentation. Biophysical profile was obt ained. Endovaginal scanning: Not performed COMPARISON: Most recent from 04/19/2020 FINDINGS: A single living intrauterine gestation is present. Presentation: Cephalic Placenta: Placental position is anterior, without previa. Amniotic fluid index: 10.7 cm, 26th percentile for gestational age. heart rate: 151 beats per minutes. Maternal cervical canal: Not seen due to positioning Biophysical profile: Tone: 2 out of 2 Movement: 2 out of 2 Respiration: 2 out of 2 Amniotic fluid index 2 out of 2 (deepest pocket is 7.5 cm) Total score 8 out of 8. IMPRESSION: 1. Single living intrauterine in cephalic presentation. 2. Normal biophysical profile score. 3. Amniotic fluid index is 10.7 cm with maximum pocket is 7.5 cm. Reviewed by: Judith Slade MD on 04/26/2020 1:55 PM PDT Approved by: Judith Slade MD on 04/26/2020 1:55 PM PDT Station ID: [id number]
== END 2020-04-26 11:07 | disposition home or self-care (01) ==
LOC: DI 09:44 → FBP 10:20 → DI 11:07
PROVIDERS: ATTEND Advanced Practice Midwife
DX: O24.419 Gestational diabetes mellitus in pregnancy, unspecified control (principal); O09.90 Supervision of high risk pregnancy, unspecified, unspecified trimester; Z3A.00 Weeks of gestation of pregnancy not specified
CPT/HCPCS: 59025; 76815

== ENCOUNTER 2020-04-29 07:20 | Inpatient (IN) | payer OTHER ==
[2020-04-29] MEDS ORDERED: fentaNYL 100 MCG/2 ML VIAL IVP PRN (08:08)
[2020-04-29] MEDS ORDERED: LABETALOL 5 MG/1 ML 20 ML MDV IVP PRN (08:08)
[2020-04-29] MEDS ORDERED: CARBOPROST TROMETHAMINE 250 MCG/ML AMP IM PRN ×2 (08:08)
[2020-04-29] MEDS ORDERED: OXYTOCIN/SODIUM CHLORIDE 500 ML IV PRN ×2 (08:08)
[2020-04-29] MEDS ORDERED: ACETAMINOPHEN 325 MG TABLET PO PRN (08:08)
[2020-04-29] MEDS ORDERED: LIDOCAINE-MPF 1% 30 ML VIAL ID PRN (08:08)
[2020-04-29] MEDS ORDERED: miSOPROStoL 200 MCG TABLET BC PRN (08:08)
[2020-04-29] MEDS ORDERED: TRANEXAMIC ACID 1,000 MG in SODIUM CHLORIDE 0.9% 100ML 100 ML IV PRN (08:08)
[2020-04-29] MEDS ORDERED: miSOPROStoL 200 MCG TABLET BC ONE (08:08)
[2020-04-29] MEDS ORDERED: ONDANSETRON ODT 4 MG TABLET TL PRN (08:08)
[2020-04-29] MEDS ORDERED: TERBUTALINE 1 MG/ML VIAL SUBQ PRN (08:08)
[2020-04-29] MEDS ORDERED: SODIUM CHLORIDE FLUSH 0.9% 10 ML SYRINGE IVP PRN (08:08)
[2020-04-29] MEDS ORDERED: ONDANSETRON 4 MG/2 ML VIAL IVP PRN (08:08)
[2020-04-29] MEDS ORDERED: OXYTOCIN 10 UNIT/ML VIAL IM PRN (08:08)
--- NOTE | 2020-04-29 08:21 | HISTORY & PHYSICAL EXAMINATION ---
Admit History - Visit Reason Visit Reason: Other (IOl of labor) - : 1 Parity: 0 Care: positive: [facility] Risk/History: positive: Gestational diabetes, Other (CHTN) Complications This : positive: Gestational diabetes, Chronic HTN Smoking Status: Never smoker - Mother's Labs Mother's Blood Type: positive: A Mother's RH: positive: Positive GBS: positive: Group B Step Negative Rubella Status: positive: Immune - Other Maternal History Other Maternal History: Patient is a 34 yo at 39+2 wga with complicated by A2DM and chronic HTN. GDM oderately controlled with pp within range. FBG have been slightly elevated on glyburide 7.5 mg QHS and metformin 1000 mg with dinner. Patient had failed trial of NPH, reaching a nightly dose of 18 units without any change in FBG. BPs have remained in high normal range without medications. Patient presents for IOL. No LOF/VB/CTX. + FM EFW is 90%ile DATING: LMP 07/29/19--> YANNI 05/04/20 (definitive) US on 09/17/19 at 6w5d given YANNI 05/07/20--. cwd CHTN: Tracking BP -On ASA -No antihypertensives at present -IOL at 39 weeks in absence of GOSIA No PIH symptoms - BPs at home 130s/80s -Baseline P:C wnl GDM: On glyburide 7.5 mg QHS and metformin 1000 mg po with dinner. Glyburide held last night mild initial improvement on glyburide beyond that achieved with metformin PP all wnl -Recommend twice weekly NST and weekly RAMÓN rather than weekly BPP given poor control at present -Q4 week growth us 03/14/2020 53%ile 04/19/2020 90%ile A pos/Rub imm [place] 46 XY, msAFP ordered; not completed FAS: anterior, CL 5.6 EFW 83%ile 3VC, FAS wnl HbA1c 5.35 TSH 1.8 TDAP complete Glucola 146, 3H 120, 185, 119, 84 Breast pump RX: given Flu: given early in season HSV: denies GBS neg GCCT neg MOD: IOL at 39 weeks. Switched to glyburide, no insulin at present Pap wnl 08/02; needs repeat in 2023 Meds/Allgy - Home Medications Home Medications: Ambulatory Orders Medication Instructions Recorded Confirmed Albuterol Sulfate 1.25 mg IH Q4H PRN 02/28/20 02/28/20 Aspirin [Adult Low Dose Aspirin EC] 81 mg PO DAILY 02/28/20 02/28/20 Cetirizine HCl [Zyrtec] 10 mg PO DAILY 02/28/20 02/28/20 Cholecalciferol (Vitamin D3) 25 mcg PO DAILY 02/28/20 02/28/20 [Vitamin D3] Pnv No.95/Ferrous Fum/Folic AC 1 tab PO DAILY 02/28/20 02/28/20 [ Formula Tablet] Ranitidine 1 tab PO BID PRN 02/28/20 - Allergies Allergies/Adverse Reactions: Allergies Allergy/AdvReac Type Severity Reaction Status Date / Time amoxicillin [From Augmentin] Allergy Unknown Verified 02/28/20 11:22 clavulanic acid Allergy Unknown Verified 02/28/20 11:22 [From Augmentin] levofloxacin [From Levaquin] Allergy Unknown Verified 02/28/20 11:22 Review of Systems - Other Findings Other Findings: As per HPI, otherwise remaining systems are negative. Physical - Abdominal Exam Vital Signs: 142/67 18 81 Contraction Frequency (min/apart): quiet - Monitoring Heart Rate Baseline: 130 mod gabriel 15x15 accels no decels Strip Review: positive: Category I - Presentation Presentation: positive: Vertex - Vaginal Exam Membranes: positive: Membranes intact Dilation (in cm): FT Effacement (%): 70 Station: positive: -2 Cervical Position: positive: Posterior Plan for Labor - Plan For Labor Plan for Labor: IOL at 39+2 wga for A2DM and CHTN IOL: Unfavorable cervix -Misoprostol for cervical ripening -Consider Keita balloon -Pitocin when favorable -AROM as indicated A2DM: On glyburide and metformin -Holding both medications while in-patient -Will use SSI if blood sugars are elevated CHTN: Mildly elevated BP at admission -P:C wnl -PIH labs wnl -No PIH symptoms -Q15 min BP checks at admission then Q2H if consistently wnl -Avoid methergine in setting of PPH FWB: Vertex, GBS neg, EFW 90%ile, Cat I tracing -cEFM PAIN: -Fentanyl 50 mcg IV as needed to max of 4 doses and not to be given after 7 cm -Epidural as desired Anticipate Prepare for hypoglycemia after delivery. Inpatient care
[2020-04-29] MEDS: miSOPROStoL 100 MCG TABLET BC SCH ×3 (09:04→18:22)
[2020-04-29 09:14] LABS: BASOPHILS % (AUTO) 0.3 %; EOSINOPHILS % (AUTO) 0.4 %; HGB - HEMOGLOBIN 11.2 g/dL (12.0-16.0); LYMPHOCYTES # (AUTO) 1.9 10^3/uL (1.5-3.5); LYMPHOCYTES % (AUTO) 18.4 %; MEAN CORPUSCULAR HGB CONC 31.7 g/dL (32.0-36.0); MEAN CORPUSCULAR VOLUME 81.9 fL (81.0-99.0); MEAN PLATELET VOLUME 10.9 fL (7.9-10.8); MONOCYTES # (AUTO) 0.9 10^3/uL (0.0-1.0); MONOCYTES % (AUTO) 8.9 %; NEUTROPHILS # (AUTO) 7.2 10^3/uL (1.5-6.6); NEUTROPHILS % (AUTO) 71.6 %; PLT - PLATELET COUNT 274 10^3/uL (130-450); RED BLOOD COUNT 4.31 10^6/uL (4.20-5.40); RED CELL DISTRIBUTION WIDTH 16.2 % (12.0-15.0); WHITE BLOOD COUNT 10.1 x10^3/uL (4.8-10.8)
[2020-04-29 09:20] LABS: CREATININE 0.5 mg/dL (0.4-1.0); URIC ACID 4.3 mg/dL (2.6-7.2)
[2020-04-29 09:31] LABS: CREATININE,URINE 99.8 mg/dL; PROTEIN/CREATININE RATIO,URINE 0.1 (<=0.2)
[2020-04-29] MEDS: LACTATED RINGERS 1,000 ML IV SCH (18:08)
--- NOTE | 2020-04-29 18:56 | PROVIDER PROGRESS NOTE ---
Subjective - Prog Note Date Prog Note Date: 04/29/20 Prog Note Time: 18:54 - Subjective Subjective: Feeling contractions, rated 1-2/10. No LOF or VB. Has had 2 doses of miso. Objective - Vital Signs/Intake & Output Reviewed Vital Signs: Yes Vital Signs: Vital Signs x48h Temp BP 04/29/20 13:05 140/70 H 04/29/20 13:00 97.6 F L 143/68 H Intake & Output: Intake & Output 04/26/20 04/27/20 04/28/20 04/29/20 23:59 23:59 23:59 23:59 Intake Total 349.65 Balance 349.65 - Objective General Appearance: positive: No acute distress Respiratory: positive: No respiratory distress Cardiovascular: positive: Other (RR) Abdomen: positive: Non-tender Skin: positive: Color nml Extremities: positive: No pedal edema Neurologic/Psychiatric: positive: Oriented x3 Comments/Other: SVE FT/70/-2/posterior/medium EFM 135 mod gabriel 15x15 accels, no decels at current Currently Cat I tracing Period of intermittent variables, now resolved Had 250 cc fluid bolus TOCO: intermittent - Lab Results Fish Bones: 04/29/20 09:04 04/29/20 09:04 Other Labs: Lab Results x24hrs 04/29/20 04/29/20 04/29/20 Range/Units 09:04 09:04 09:04 WBC (4.8-10.8) x10^3/uL RBC (4.20-5.40) 10^6/uL Hgb (12.0-16.0) g/dL Hct (37.0-47.0) % MCV (81.0-99.0) fL MCH (27.0-31.0) pg MCHC (32.0-36.0) g/dL RDW (12.0-15.0) % Plt Count (130-450) 10^3/uL MPV (7.9-10.8) fL Neut # (Auto) (1.5-6.6) 10^3/uL Lymph # (Auto) (1.5-3.5) 10^3/uL [place] # (Auto) (0.0-1.0) 10^3/uL Eos # (Auto) (0.0-0.7) 10^3/uL Baso # (Auto) (0.0-0.1) 10^3/uL Absolute Nucleated RBC x10^3/uL Nucleated RBC % /100WBC Creatinine (0.4-1.0) mg/dL Estimated GFR (MDRD) (>89) Glucose 100 (70-100) mg/dL Uric Acid (2.6-7.2) mg/dL AST (10-42) IU/L ALT (10-60) IU/L Urine Creatinine 99.8 mg/dL Ur Total Protein Timed 9 mg/dL Protein/Creatinin Ratio 0.1 (<=0.2) Blood Type A POSITIVE Antibody Screen NEGATIVE 04/29/20 04/29/20 Range/Units 09:04 09:04 WBC 10.1 (4.8-10.8) x10^3/uL RBC 4.31 (4.20-5.40) 10^6/uL Hgb 11.2 L (12.0-16.0) g/dL Hct 35.3 L (37.0-47.0) % MCV 81.9 (81.0-99.0) fL MCH 26.0 L (27.0-31.0) pg MCHC 31.7 L (32.0-36.0) g/dL RDW 16.2 H (12.0-15.0) % Plt Count 274 (130-450) 10^3/uL MPV 10.9 H (7.9-10.8) fL Neut # (Auto) 7.2 H (1.5-6.6) 10^3/uL Lymph # (Auto) 1.9 (1.5-3.5) 10^3/uL [place] # (Auto) 0.9 (0.0-1.0) 10^3/uL Eos # (Auto) 0.0 (0.0-0.7) 10^3/uL Baso # (Auto) 0.0 (0.0-0.1) 10^3/uL Absolute Nucleated RBC 0.00 x10^3/uL Nucleated RBC % 0.0 /100WBC Creatinine 0.5 (0.4-1.0) mg/dL Estimated GFR (MDRD) 140 (>89) Glucose (70-100) mg/dL Uric Acid 4.3 (2.6-7.2) mg/dL AST 21 (10-42) IU/L ALT 30 (10-60) IU/L Urine Creatinine mg/dL Ur Total Protein Timed mg/dL Protein/Creatinin Ratio (<=0.2) Blood Type Antibody Screen Assessment/Plan - Problem List (1) Encounter for induction of labor Impression: IOL: S/p miso 50 mcg BC x2 -Just received 3rd dose -Current exam not amenable to Keita balloon placement -Cont with cervical ripening FWB: Periods of Cat II tracing with intermittent decels, currently resolved -Received 250 cc fluid bolus -Currently Cat I tracing -CEFM CHTN: BPs in mild range -PIH labs wnl -No PIH symptoms -Will treat for severe range pressures GDM: Holding metformin and glyburide -BG less than 120 at two measures taken in-patient -Cont with fasting and 1 hour PP until NPO, then Q2H Anticipate
[2020-04-29] MEDS ORDERED: OXYTOCIN/SODIUM CHLORIDE 500 ML IV SCH (22:00)
--- NOTE | 2020-04-29 22:34 | PROVIDER PROGRESS NOTE ---
Subjective - Prog Note Date Prog Note Date: 04/29/20 Prog Note Time: 22:30 - Subjective Subjective: Patient had had 3 doses of miso 50 mcg BC Due for 4th dose at approximately 22:15. From 21:50 to ~22:00, EFM showed run of variables Now Cat I tracing for 30 minutes 145 mod gabriel 15x15 accels no decels TOCO: quiet Resting for one hour Starting low dose pitocin after period of rest Anticipate Objective - Vital Signs/Intake & Output Intake & Output: Intake & Output 04/26/20 04/27/20 04/28/20 04/29/20 23:59 23:59 23:59 23:59 Intake Total 349.65 Balance 349.65 - Lab Results Fish Bones: 04/29/20 09:04 04/29/20 09:04 Other Labs: Lab Results x24hrs 04/29/20 04/29/20 04/29/20 Range/Units 09:04 09:04 09:04 WBC (4.8-10.8) x10^3/uL RBC (4.20-5.40) 10^6/uL Hgb (12.0-16.0) g/dL Hct (37.0-47.0) % MCV (81.0-99.0) fL MCH (27.0-31.0) pg MCHC (32.0-36.0) g/dL RDW (12.0-15.0) % Plt Count (130-450) 10^3/uL MPV (7.9-10.8) fL Neut # (Auto) (1.5-6.6) 10^3/uL Lymph # (Auto) (1.5-3.5) 10^3/uL [place] # (Auto) (0.0-1.0) 10^3/uL Eos # (Auto) (0.0-0.7) 10^3/uL Baso # (Auto) (0.0-0.1) 10^3/uL Absolute Nucleated RBC x10^3/uL Nucleated RBC % /100WBC Creatinine (0.4-1.0) mg/dL Estimated GFR (MDRD) (>89) Glucose 100 (70-100) mg/dL Uric Acid (2.6-7.2) mg/dL AST (10-42) IU/L ALT (10-60) IU/L Urine Creatinine 99.8 mg/dL Ur Total Protein Timed 9 mg/dL Protein/Creatinin Ratio 0.1 (<=0.2) Blood Type A POSITIVE Antibody Screen NEGATIVE 04/29/20 04/29/20 Range/Units 09:04 09:04 WBC 10.1 (4.8-10.8) x10^3/uL RBC 4.31 (4.20-5.40) 10^6/uL Hgb 11.2 L (12.0-16.0) g/dL Hct 35.3 L (37.0-47.0) % MCV 81.9 (81.0-99.0) fL MCH 26.0 L (27.0-31.0) pg MCHC 31.7 L (32.0-36.0) g/dL RDW 16.2 H (12.0-15.0) % Plt Count 274 (130-450) 10^3/uL MPV 10.9 H (7.9-10.8) fL Neut # (Auto) 7.2 H (1.5-6.6) 10^3/uL Lymph # (Auto) 1.9 (1.5-3.5) 10^3/uL [place] # (Auto) 0.9 (0.0-1.0) 10^3/uL Eos # (Auto) 0.0 (0.0-0.7) 10^3/uL Baso # (Auto) 0.0 (0.0-0.1) 10^3/uL Absolute Nucleated RBC 0.00 x10^3/uL Nucleated RBC % 0.0 /100WBC Creatinine 0.5 (0.4-1.0) mg/dL Estimated GFR (MDRD) 140 (>89) Glucose (70-100) mg/dL Uric Acid 4.3 (2.6-7.2) mg/dL AST 21 (10-42) IU/L ALT 30 (10-60) IU/L Urine Creatinine mg/dL Ur Total Protein Timed mg/dL Protein/Creatinin Ratio (<=0.2) Blood Type Antibody Screen
--- NOTE | 2020-04-30 03:20 | PROVIDER PROGRESS NOTE ---
Subjective - Prog Note Date Prog Note Date: 04/30/20 Prog Note Time: 03:17 - Subjective Subjective: Low dose pitocin had been stopped at 00:40 after run of Cat II tracing Provider not informed. Currently restarting pitocin at low dose for continued cervical ripening Current EFM 145 mod gabriel 15x15 accels no decels TOCO: quiet Cat I tracing at present Restarting pitocin Objective - Vital Signs/Intake & Output Intake & Output: Intake & Output 04/27/20 04/28/20 04/29/20 04/30/20 23:59 23:59 23:59 23:59 Intake Total 349.65 Balance 349.65 - Lab Results Fish Bones: 04/29/20 09:04 04/29/20 09:04 Other Labs: Lab Results x24hrs 04/29/20 04/29/20 04/29/20 Range/Units 09:04 09:04 09:04 WBC (4.8-10.8) x10^3/uL RBC (4.20-5.40) 10^6/uL Hgb (12.0-16.0) g/dL Hct (37.0-47.0) % MCV (81.0-99.0) fL MCH (27.0-31.0) pg MCHC (32.0-36.0) g/dL RDW (12.0-15.0) % Plt Count (130-450) 10^3/uL MPV (7.9-10.8) fL Neut # (Auto) (1.5-6.6) 10^3/uL Lymph # (Auto) (1.5-3.5) 10^3/uL [place] # (Auto) (0.0-1.0) 10^3/uL Eos # (Auto) (0.0-0.7) 10^3/uL Baso # (Auto) (0.0-0.1) 10^3/uL Absolute Nucleated RBC x10^3/uL Nucleated RBC % /100WBC Creatinine (0.4-1.0) mg/dL Estimated GFR (MDRD) (>89) Glucose 100 (70-100) mg/dL Uric Acid (2.6-7.2) mg/dL AST (10-42) IU/L ALT (10-60) IU/L Urine Creatinine 99.8 mg/dL Ur Total Protein Timed 9 mg/dL Protein/Creatinin Ratio 0.1 (<=0.2) Blood Type A POSITIVE Antibody Screen NEGATIVE 04/29/20 04/29/20 Range/Units 09:04 09:04 WBC 10.1 (4.8-10.8) x10^3/uL RBC 4.31 (4.20-5.40) 10^6/uL Hgb 11.2 L (12.0-16.0) g/dL Hct 35.3 L (37.0-47.0) % MCV 81.9 (81.0-99.0) fL MCH 26.0 L (27.0-31.0) pg MCHC 31.7 L (32.0-36.0) g/dL RDW 16.2 H (12.0-15.0) % Plt Count 274 (130-450) 10^3/uL MPV 10.9 H (7.9-10.8) fL Neut # (Auto) 7.2 H (1.5-6.6) 10^3/uL Lymph # (Auto) 1.9 (1.5-3.5) 10^3/uL [place] # (Auto) 0.9 (0.0-1.0) 10^3/uL Eos # (Auto) 0.0 (0.0-0.7) 10^3/uL Baso # (Auto) 0.0 (0.0-0.1) 10^3/uL Absolute Nucleated RBC 0.00 x10^3/uL Nucleated RBC % 0.0 /100WBC Creatinine 0.5 (0.4-1.0) mg/dL Estimated GFR (MDRD) 140 (>89) Glucose (70-100) mg/dL Uric Acid 4.3 (2.6-7.2) mg/dL AST 21 (10-42) IU/L ALT 30 (10-60) IU/L Urine Creatinine mg/dL Ur Total Protein Timed mg/dL Protein/Creatinin Ratio (<=0.2) Blood Type Antibody Screen
--- NOTE | 2020-04-30 04:25 | PROVIDER PROGRESS NOTE ---
Subjective - Prog Note Date Prog Note Date: 04/30/20 Prog Note Time: 04:22 - Subjective Subjective: Keita balloon placed with 60 cc in each balloon Pit at 1 mU/min SVE 2/80/-2/soft/mid-post EFM 150 mod gabriel 15x15 accels intermittent decels, none in last 20 min TOCO: Q3-4 Cat I tracing Anticipate Objective - Vital Signs/Intake & Output Intake & Output: Intake & Output 04/27/20 04/28/20 04/29/20 04/30/20 23:59 23:59 23:59 23:59 Intake Total 349.65 Balance 349.65 - Lab Results Fish Bones: 04/29/20 09:04 04/29/20 09:04 Other Labs: Lab Results x24hrs 04/29/20 04/29/20 04/29/20 Range/Units 09:04 09:04 09:04 WBC (4.8-10.8) x10^3/uL RBC (4.20-5.40) 10^6/uL Hgb (12.0-16.0) g/dL Hct (37.0-47.0) % MCV (81.0-99.0) fL MCH (27.0-31.0) pg MCHC (32.0-36.0) g/dL RDW (12.0-15.0) % Plt Count (130-450) 10^3/uL MPV (7.9-10.8) fL Neut # (Auto) (1.5-6.6) 10^3/uL Lymph # (Auto) (1.5-3.5) 10^3/uL [place] # (Auto) (0.0-1.0) 10^3/uL Eos # (Auto) (0.0-0.7) 10^3/uL Baso # (Auto) (0.0-0.1) 10^3/uL Absolute Nucleated RBC x10^3/uL Nucleated RBC % /100WBC Creatinine (0.4-1.0) mg/dL Estimated GFR (MDRD) (>89) Glucose 100 (70-100) mg/dL Uric Acid (2.6-7.2) mg/dL AST (10-42) IU/L ALT (10-60) IU/L Urine Creatinine 99.8 mg/dL Ur Total Protein Timed 9 mg/dL Protein/Creatinin Ratio 0.1 (<=0.2) Blood Type A POSITIVE Antibody Screen NEGATIVE 04/29/20 04/29/20 Range/Units 09:04 09:04 WBC 10.1 (4.8-10.8) x10^3/uL RBC 4.31 (4.20-5.40) 10^6/uL Hgb 11.2 L (12.0-16.0) g/dL Hct 35.3 L (37.0-47.0) % MCV 81.9 (81.0-99.0) fL MCH 26.0 L (27.0-31.0) pg MCHC 31.7 L (32.0-36.0) g/dL RDW 16.2 H (12.0-15.0) % Plt Count 274 (130-450) 10^3/uL MPV 10.9 H (7.9-10.8) fL Neut # (Auto) 7.2 H (1.5-6.6) 10^3/uL Lymph # (Auto) 1.9 (1.5-3.5) 10^3/uL [place] # (Auto) 0.9 (0.0-1.0) 10^3/uL Eos # (Auto) 0.0 (0.0-0.7) 10^3/uL Baso # (Auto) 0.0 (0.0-0.1) 10^3/uL Absolute Nucleated RBC 0.00 x10^3/uL Nucleated RBC % 0.0 /100WBC Creatinine 0.5 (0.4-1.0) mg/dL Estimated GFR (MDRD) 140 (>89) Glucose (70-100) mg/dL Uric Acid 4.3 (2.6-7.2) mg/dL AST 21 (10-42) IU/L ALT 30 (10-60) IU/L Urine Creatinine mg/dL Ur Total Protein Timed mg/dL Protein/Creatinin Ratio (<=0.2) Blood Type Antibody Screen
--- NOTE | 2020-04-30 07:04 | PROVIDER PROGRESS NOTE ---
Subjective - Prog Note Date Prog Note Date: 04/30/20 Prog Note Time: 07:01 - Subjective Subjective: Patient is doing well. Mild discomfort Pitocin at 3 mU/min Keita balloon advanced and fixed with new cord clamp EFM 150 mod gabriel 15x15 accels no decels TOCO: Q3-4 Anticipate Objective - Vital Signs/Intake & Output Intake & Output: Intake & Output 04/27/20 04/28/20 04/29/20 04/30/20 23:59 23:59 23:59 23:59 Intake Total 349.65 Balance 349.65 - Lab Results Fish Bones: 04/29/20 09:04 04/29/20 09:04 Other Labs: Lab Results x24hrs 04/29/20 04/29/20 04/29/20 Range/Units 09:04 09:04 09:04 WBC (4.8-10.8) x10^3/uL RBC (4.20-5.40) 10^6/uL Hgb (12.0-16.0) g/dL Hct (37.0-47.0) % MCV (81.0-99.0) fL MCH (27.0-31.0) pg MCHC (32.0-36.0) g/dL RDW (12.0-15.0) % Plt Count (130-450) 10^3/uL MPV (7.9-10.8) fL Neut # (Auto) (1.5-6.6) 10^3/uL Lymph # (Auto) (1.5-3.5) 10^3/uL [place] # (Auto) (0.0-1.0) 10^3/uL Eos # (Auto) (0.0-0.7) 10^3/uL Baso # (Auto) (0.0-0.1) 10^3/uL Absolute Nucleated RBC x10^3/uL Nucleated RBC % /100WBC Creatinine (0.4-1.0) mg/dL Estimated GFR (MDRD) (>89) Glucose 100 (70-100) mg/dL Uric Acid (2.6-7.2) mg/dL AST (10-42) IU/L ALT (10-60) IU/L Urine Creatinine 99.8 mg/dL Ur Total Protein Timed 9 mg/dL Protein/Creatinin Ratio 0.1 (<=0.2) Blood Type A POSITIVE Antibody Screen NEGATIVE 04/29/20 04/29/20 Range/Units 09:04 09:04 WBC 10.1 (4.8-10.8) x10^3/uL RBC 4.31 (4.20-5.40) 10^6/uL Hgb 11.2 L (12.0-16.0) g/dL Hct 35.3 L (37.0-47.0) % MCV 81.9 (81.0-99.0) fL MCH 26.0 L (27.0-31.0) pg MCHC 31.7 L (32.0-36.0) g/dL RDW 16.2 H (12.0-15.0) % Plt Count 274 (130-450) 10^3/uL MPV 10.9 H (7.9-10.8) fL Neut # (Auto) 7.2 H (1.5-6.6) 10^3/uL Lymph # (Auto) 1.9 (1.5-3.5) 10^3/uL [place] # (Auto) 0.9 (0.0-1.0) 10^3/uL Eos # (Auto) 0.0 (0.0-0.7) 10^3/uL Baso # (Auto) 0.0 (0.0-0.1) 10^3/uL Absolute Nucleated RBC 0.00 x10^3/uL Nucleated RBC % 0.0 /100WBC Creatinine 0.5 (0.4-1.0) mg/dL Estimated GFR (MDRD) 140 (>89) Glucose (70-100) mg/dL Uric Acid 4.3 (2.6-7.2) mg/dL AST 21 (10-42) IU/L ALT 30 (10-60) IU/L Urine Creatinine mg/dL Ur Total Protein Timed mg/dL Protein/Creatinin Ratio (<=0.2) Blood Type Antibody Screen
--- NOTE | 2020-04-30 08:39 | PROVIDER PROGRESS NOTE ---
Labor Progress Note - Uterine Monitoring Uterine Monitoring Mode: positive: External toco : 2-6 Contraction Intensity: positive: Mild to moderate Uterine Resting Tone: positive: Soft - Monitoring Monitor Mode: positive: External ultrasound Heart Rate Baseline: 150 Heart Rate Variability: positive: Moderate (6-25 bmp) Accelerations: positive: Present, 15x15 Decelerations: positive: Late, Recurrent (>50% x20 min) Strip Review: positive: Category II - Vaginal Exam Dilation (in cm): 6 Effacement (%): 75% Station: -2 Cervical Position: Posterior - Labor Progress Note Labor Progress Note/Additional Text: Excellent results from [facility]. good variability but recurrent late decelerations. with minimal contractions. position change. discussed with the Pt possibility of C/S. When strip normalizes will restart Pit.
[2020-04-30] MEDS: LACTATED RINGERS 1,000 ML IV SCH (09:20)
--- NOTE | 2020-04-30 10:48 | PROVIDER PROGRESS NOTE ---
Labor Progress Note - Uterine Monitoring Contraction Frequency (min/apart): 2-6 Contraction Intensity: positive: Moderate Uterine Resting Tone: positive: Soft - Monitoring Monitor Mode: positive: External ultrasound Heart Rate Baseline: 160 Heart Rate Variability: positive: Minimal (0-5 bpm) Accelerations: positive: Absent Decelerations: positive: Late, Recurrent (>50% x20 min) Strip Review: positive: Category II - Vaginal Exam Dilation (in cm): 6 Effacement (%): 75 Station: -2 Cervical Position: Posterior - Labor Progress Note Labor Progress Note/Additional Text: late decelerations with reactive accelerations. minimal contractions tried multiple positions. no cervical changes. discussed Options with Pt and spouse. will proceed with PLTCS. R&B, QA&A
[2020-04-30] MEDS ORDERED: ceFAZolin 2 GM in SODIUM CHLORIDE 0.9% 100ML 100 ML IV ONE (10:57)
[2020-04-30] MEDS ORDERED: MORPHINE PF 5 MG/10 ML VIAL EP ONE (11:38)
[2020-04-30] MEDS ORDERED: fentaNYL 100 MCG/2 ML VIAL IVP ONE (11:38)
[2020-04-30] MEDS ORDERED: ONDANSETRON 4 MG/2 ML VIAL IVP ONE (11:38)
--- NOTE | 2020-04-30 12:58 | OPERATIVE REPORT ---
Operative Report - General Admit Date: 04/29/20 Procedure Date: 04/30/20 Planned Procedure: PLTC/S Pre-Op Diagnosis: 39 WEEKS, GDM, INTOLERANCE OF LABOR Procedure Performed: PLTC/S Post Op Diagnosis: LEFT BANDOLEAR CORD - Procedure Note Primary Surgeon: Scott Witt MD Secondary Surgeon: Mela GROVE Anesthesia Provider: Shakeel Boland CRNA Anesthesia Technique: Spinal Pathology: Placenta Estimated Blood Loss (mL): 500 Indications: intolerance
[2020-04-30] MEDS ORDERED: LACTATED RINGERS 1,000 ML IV ONE (13:00)
--- NOTE | 2020-04-30 13:05 | ANESTHESIA ---
Pre-Anesthesia VS, & Labs - Diagnosis intolerance to labor - Procedure section Vital Signs: Temp Pulse Resp BP Pulse Ox 36.4 C L 84 16 140/70 H 100 04/29/20 13:00 04/29/20 09:17 04/29/20 09:17 04/29/20 13:05 04/29/20 09:17 Height 5 ft 11 in Weight (kg) 122.924 kg Body Mass Index 34.7 - Is Patient ?: Yes - Lab Results Current Lab Results: Laboratory Tests 04/29/20 09:04: Blood Type A POSITIVE, Antibody Screen NEGATIVE 04/29/20 09:04: Glucose 100 04/29/20 09:04: Creatinine 0.5, Estimated GFR (MDRD) 140, Uric Acid 4.3, AST 21, ALT 30 04/29/20 09:04: WBC 10.1, RBC 4.31, Hgb 11.2 L, Hct 35.3 L, MCV 81.9, MCH 26.0 L , MCHC 31.7 L, RDW 16.2 H, Plt Count 274, MPV 10.9 H, Neut # (Auto) 7.2 H, Lymph # (Auto) 1.9, [place] # (Auto) 0.9, Eos # (Auto) 0.0, Baso # (Auto) 0.0, Absolute Nucleated RBC 0.00, Nucleated RBC % 0.0 Lab results reviewed: Yes Fish Bones: 04/29/20 09:04 04/29/20 09:04 Home Medications and Allergies Active Medications Acetaminophen (Tylenol) 650 mg PO Q6H PRN PRN Reason: Pain or Fever Carboprost Tromethamine (Hemabate) 250 mcg IM Q15M PRN PRN Reason: Step 4: Hemorrhage protocol Stop: 05/04/20 08:09 Fentanyl (Fentanyl) 50 mcg IVP Q1H PRN PRN Reason: PAIN Oxytocin/Sodium Chloride (Pitocin/Sodium Chloride) 500 mls @ 999 mls/hr IV PRN PRN; Protocol PRN Reason: POST- HEMORR PREVENTION Stop: 05/04/20 08:09 Tranexamic Acid 1,000 mg/ (Sodium Chloride) 110 mls @ 660 mls/hr IV .ONCE PRN PRN Reason: EBL >1200mL and within 3hr Stop: 05/04/20 08:09 Oxytocin/Sodium Chloride (Pitocin/Sodium Chloride) 500 mls @ 1 mls/hr IV TITR EVANS; Protocol Oxytocin/Sodium Chloride (Pitocin/Sodium Chloride) 500 mls @ 999 mls/hr IV PRN PRN; Protocol PRN Reason: POST- HEMORR PREVENTION Lactated Ringer's (Lr) 1,000 mls @ 100 mls/hr IV .Q10H EVANS Last Admin: 04/30/20 09:20 Dose: 75 mls/hr Documented by: Oxytocin/Sodium Chloride (Pitocin/Sodium Chloride) 500 mls @ 1 mls/hr IV TITR EVANS; Protocol Last Admin: 04/29/20 23:20 Dose: 1 milliunit/min, 1 mls/hr Documented by: Lidocaine HCl (Xylocaine-Mpf 1% Vial) 30 ml ID .ONCE PRN PRN Reason: PERINEAL REPAIR Stop: 05/04/20 08:09 Misoprostol (Cytotec) 800 mcg BC .ONCE PRN PRN Reason: Step 3: Hemorrhage protocol Stop: 05/04/20 08:09 Misoprostol (Cytotec) 50 mcg BC Q4HR [facility] Last Admin: 04/29/20 18:22 Dose: 50 mcg Documented by: Ondansetron HCl (Zofran Inj) 4 mg IVP Q4HR PRN PRN Reason: Nausea / Vomiting Ondansetron HCl (Zofran Odt) 4 mg TL Q4HR PRN PRN Reason: Nausea / Vomiting Sodium Chloride (Normal Saline Flush 0.9%) 10 ml IVP 0100,0900,1700 [facility] Sodium Chloride (Normal Saline Flush 0.9%) 10 ml IVP PRN PRN PRN Reason: NEEDED PER PROVIDER ORDERS Terbutaline Sulfate (Terbutaline) 0.25 mg SUBQ Q1H PRN PRN Reason: distress/tachysystole Albuterol Sulfate 1.25 mg IH Q4H PRN 02/28/20 Aspirin [Adult Low Dose Aspirin EC] 81 mg PO DAILY 02/28/20 Cetirizine HCl [Zyrtec] 10 mg PO DAILY 02/28/20 Cholecalciferol (Vitamin D3) [Vitamin D3] 25 mcg PO DAILY 02/28/20 Pnv No.95/Ferrous Fum/Folic AC [ Formula Tablet] 1 tab PO DAILY 02/28/20 Ranitidine 1 tab PO BID PRN 02/28/20 Allergies/Adverse Reactions: Allergies Allergy/AdvReac Type Severity Reaction Status Date / Time amoxicillin [From Augmentin] Allergy Unknown Verified 02/28/20 11:22 clavulanic acid Allergy Unknown Verified 02/28/20 11:22 [From Augmentin] levofloxacin [From Levaquin] Allergy Unknown Verified 02/28/20 11:22 Anes History & Medical History - Anesthetic History Anesthesia Complications: reports: No previous complications Family history of Anesthesia Complications: Denies Family history of Malignant Hyperthermia: Denies - Medical History Smoking Status: Never smoker - Obstetrical History : 1 Parity: 0 Events: positive: Gestational diabetes, Other (CHTN) Complications: positive: Gestational diabetes, Chronic HTN Exam General: Alert, Oriented x3, Cooperative, No acute distress Dental: WNL Mouth Openin Fingerbreadth Neck Mobility: Normal Mallampati classification: I Respiratory: Lungs clear, Normal breath sounds, No respiratory distress, No accessory muscle use Cardiovascular: Regular rate, Normal S1, Normal S2, No murmurs Plan Anesthesia Type: Spinal Consent for Procedure(s) Verified and Reviewed: Yes Code Status: Attempt Resuscitation ASA classification: 2-Mild systemic disease Is this case an emergency?: No
[2020-04-30] MEDS ORDERED: SODIUM CHLORIDE FLUSH 0.9% 10 ML SYRINGE IVP PRN (13:09)
[2020-04-30] MEDS ORDERED: oxyCODONE 5 MG TABLET PO PRN (13:09)
--- NOTE | 2020-04-30 13:19 | ANESTHESIA POST OP EVALUATION ---
Anesthesia Post Eval - Post Anesthesia Eval Vitals: Last Vital Signs Temp 36.2 C L 04/30/20 13:00 Pulse 67 04/30/20 13:15 Resp 16 04/30/20 13:15 BP 136/76 H 04/30/20 13:15 Pulse Ox 100 04/30/20 13:15 CV Function Including HR & BP: positive: Stable Pain Control: positive: Satisfactory Nausea & Vomiting: positive: Negative Mental Status: positive: Baseline Respiratory Status: Airway Patent Hydration Status: Satisfactory Anesthesia Complications: positive: None
[2020-04-30] MEDS ORDERED: OXYTOCIN/SODIUM CHLORIDE 500 ML IV PRN (13:30)
[2020-04-30] MEDS ORDERED: LACTATED RINGERS 1,000 ML IV SCH (14:00)
[2020-04-30] MEDS: ACETAMINOPHEN 500 MG TABLET PO SCH ×2 (14:24→22:34)
[2020-04-30] MEDS: KETOROLAC 30 MG/ML VIAL IVP SCH ×2 (14:24→20:26)
[2020-04-30] MEDS: OXYTOCIN/SODIUM CHLORIDE 500 ML IV SCH ×2 (15:46→15:50)
[2020-04-30] MEDS: SODIUM CHLORIDE FLUSH 0.9% 10 ML SYRINGE IVP SCH ×3 (15:47→15:49)
[2020-04-30] MEDS: miSOPROStoL 100 MCG TABLET BC SCH ×4 (15:47→15:50)
--- NOTE | 2020-04-30 16:51 | OPERATIVE REPORT ---
DATE OF SERVICE: 04/30/2020 Physician: Scott Witt MD PREOPERATIVE DIAGNOSES 1. Thirty-nine weeks. 2. Gestational diabetes. 3. intolerance of labor. POSTOPERATIVE DIAGNOSES 1. Thirty-nine weeks. 2. Gestational diabetes. 3. intolerance of labor. 4. 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 PROCEDURE PERFORMED: Primary low transverse section. SURGEON: Scott Witt MD CHROMIUM PLATER: NOREEN Villalba. ANESTHETIC PROVIDER: Shakeel Boland CRNA. ANESTHETIC: Spinal. FINDINGS: Upon entering the uterine cavity, the head of infant was left occiput posterior. The cord was around infant's right shoulder, thus being compressed with contractions. The amniotic fluid was clear. Following adequate spinal anesthesia, patient was placed in the supine position with a roll under right hip. At this point, she was prepped and draped in the usual fashion. A timeout was perf ormed, which concerns were addressed. The anesthetic was checked, and at this point, a Pfannenstiel incision was carried down through subcutaneous tissue to the fascia. The fascia was incised transver sely then, using Estrada scissors, extended laterally. It was then both bluntly and sharply dissected f ree from the rectus abdominis. The peritoneum was entered high. Care was taken to avoid any injury to bowel or bladder. At this point, a bladder retractor was placed. A bladder flap was developed us ing both blunt and sharp dissection. A low transverse uterine incision was accomplished using a #10 blade, bandage scissors, as well as finger spread technique. Clear amniotic fluid was encountered at this time. The head of the infant was lifted out of the pelvis, noted to be left occiput posterior. It was then delivered. The shoulders were likewise delivered. Prior to clamping the cord, the cor d was stripped to give the infant extra blood. The cord was doubly clamped and divided. was stimulated, and at this point the was handed to the underwriting support manager that was standing by. Cord b lood samples were obtained. At this point, the placenta was manually delivered. The uterus was exte riorized, wrapped in a moist lap on the external and cleansed on the internal with a dry lap. The in cision itself was closed using 0 Vicryl in a running locking suture with an imbricating layer of 0 Vi cryl. There was no evidence of any bleeding from the incision at this time. The uterus was tipped f orward. The cul-de-sac was suctioned clear of any clot or fluid. At this point, the estimated blood loss was made. Following this, the uterus was delivered back in the abdominal cavity. The gutters were irrigated, cleared of any clot. The wound was inspected. There was no evidence of any bleeding from the uterine incision. The peritoneum was then closed utilizing 2-0 Vicryl. The rectus was maris pproximated with 3 sutures of 2-0 Vicryl. At this point, the rectus was inspected. No bleeding note d, so the fascia was closed using looped PDS #0 and then the subcutaneous tissue was irrigated and th en closed utilizing 2-0 Vicryl. The incision itself was closed utilizing a stapler, subcuticular. F ollowing this, surrounding the wound was sprayed with Mastisol and then a wound VAC was placed with g ood seal. The uterus was then expressed. The patient tolerated the procedure well and was taken to recovery in stable condition. Sponge and needle counts were correct. Throughout the entire procedur eCollette was instrumental in her retraction, assistance, holding suture, fundal pressure. Her expertise was indispensable. TD: 04/30/2020 13:10
[2020-04-30] MEDS ORDERED: SODIUM CHLORIDE FLUSH 0.9% 10 ML SYRINGE IVP SCH (17:00)
[2020-05-01] MEDS: diphenhydrAMINE 25 MG CAPSULE PO PRN ×2 (00:58→05:37)
[2020-05-01] MEDS: KETOROLAC 30 MG/ML VIAL IVP SCH ×2 (02:42→08:55)
[2020-05-01 05:38] LABS: BASOPHILS % (AUTO) 0.4 %; EOSINOPHILS # (AUTO) 0.1 10^3/uL (0.0-0.7); EOSINOPHILS % (AUTO) 0.5 %; LYMPHOCYTES # (AUTO) 2.2 10^3/uL (1.5-3.5); LYMPHOCYTES % (AUTO) 20.1 %; MEAN CORPUSCULAR HEMOGLOBIN 25.6 pg (27.0-31.0); MEAN CORPUSCULAR HGB CONC 30.5 g/dL (32.0-36.0); MEAN CORPUSCULAR VOLUME 83.9 fL (81.0-99.0); MEAN PLATELET VOLUME 10.9 fL (7.9-10.8); MONOCYTES # (AUTO) 1.4 10^3/uL (0.0-1.0); MONOCYTES % (AUTO) 12.4 %; NEUTROPHILS # (AUTO) 7.2 10^3/uL (1.5-6.6); PLT - PLATELET COUNT 225 10^3/uL (130-450); RED BLOOD COUNT 3.91 10^6/uL (4.20-5.40); RED CELL DISTRIBUTION WIDTH 16.4 % (12.0-15.0); WHITE BLOOD COUNT 10.9 x10^3/uL (4.8-10.8)
[2020-05-01] MEDS: ACETAMINOPHEN 500 MG TABLET PO SCH ×3 (06:30→22:44)
--- NOTE | 2020-05-01 08:34 | PROVIDER PROGRESS NOTE ---
Subjective - General Admit Date: 04/29/20 Procedure Date: 04/30/20 Post Op Days: 1 Procedure Performed: PLTC/S - Review of Systems Wound/Incisions: positive: Dressing dry and intact General: positive: No symptoms. negative: Fever Objective - Patient Data Reviewed Vital Signs: Yes Vital Signs: Vital Signs x48h Temp Pulse Resp BP Pulse Ox 05/01/20 07:59 36.8 C 66 16 103/57 L 99 05/01/20 02:58 37.0 C 70 16 116/58 L 98 Weight: Weight 04/29/20 04/30/20 05/01/20 23:59 23:59 23:59 Weight (kg) 122.924 kg Intake & Output: Intake and Output Totals x24h 04/29/20 04/30/20 05/01/20 23:59 23:59 23:59 Intake Total 349.65 577 Output Total 255 1850 Balance 349.65 322 -1850 - Lab Results Lab Results: 05/01/20 05:34 04/29/20 09:04 Other Lab Results: Lab Results x24hrs 05/01/20 04/30/20 Range/Units 05:34 20:34 WBC 10.9 H (4.8-10.8) x10^3/uL RBC 3.91 L (4.20-5.40) 10^6/uL Hgb 10.0 L (12.0-16.0) g/dL Hct 32.8 L (37.0-47.0) % MCV 83.9 (81.0-99.0) fL MCH 25.6 L (27.0-31.0) pg MCHC 30.5 L (32.0-36.0) g/dL RDW 16.4 H (12.0-15.0) % Plt Count 225 (130-450) 10^3/uL MPV 10.9 H (7.9-10.8) fL Neut # (Auto) 7.2 H (1.5-6.6) 10^3/uL Lymph # (Auto) 2.2 (1.5-3.5) 10^3/uL [place] # (Auto) 1.4 H (0.0-1.0) 10^3/uL Eos # (Auto) 0.1 (0.0-0.7) 10^3/uL Baso # (Auto) 0.0 (0.0-0.1) 10^3/uL Absolute Nucleated RBC 0.00 x10^3/uL Nucleated RBC % 0.0 /100WBC POC Whole Bld Glucose 107 H (70 - 100) mg/dL - Current Medications Current Medications: Current Medications Generic Name Dose Route Start Last Admin Trade Name Freq PRN Reason Stop Dose Admin Acetaminophen 1,000 mg 04/30/20 14:00 05/01/20 06:30 Tylenol PO 1,000 mg Q8H EVANS Administration Diphenhydramine HCl 25 mg 05/01/20 00:49 05/01/20 05:37 Benadryl PO 25 mg Q4HR PRN Administration ITCHING Oxytocin/Sodium Chloride 500 mls @ 1 mls/hr 04/29/20 09:00 04/30/20 15:50 Pitocin/Sodium Chloride IV Not Given TITR EVANS Protocol 1 MILLIUNIT/MIN Lactated Ringer's 1,000 mls @ 100 mls/hr 04/29/20 09:00 04/30/20 17:02 Lr IV Infused .Q10H EVANS Infusion Oxytocin/Sodium Chloride 500 mls @ 1 mls/hr 04/29/20 22:00 04/29/20 23:20 Pitocin/Sodium Chloride IV 1 milliunit/min TITR EVANS 1 mls/hr Administration Protocol 1 MILLIUNIT/MIN Lactated Ringer's 1,000 mls @ 100 mls/hr 04/30/20 14:00 04/30/20 15:51 Lr IV Not Given .Q10H EVANS Oxytocin/Sodium Chloride 500 mls @ 50 mls/hr 04/30/20 13:30 04/30/20 13:33 Pitocin/Sodium Chloride IV 50 milliunit/min PRN PRN 50 mls/hr POST- HEMORR PREVENTION Administration Protocol 50 MILLIUNIT/MIN Misoprostol 50 mcg 04/29/20 09:00 04/30/20 15:50 Cytotec BC Not Given Q4HR EVANS Sodium Chloride 10 ml 04/29/20 09:00 04/30/20 15:49 Normal Saline Flush 0.9% IVP 10 ml 0100,0900,1700 EVANS Administration - Physical Exam Wound/Incisions: positive: Dressing dry and intact General Appearance: positive: No acute distress, Alert Respiratory: positive: Chest non-tender, No respiratory distress, Wheezes (right apex) Cardiovascular: positive: Regular rate & rhythm, No murmur, No gallop Abdomen: positive: Non-tender, No organomegaly, Nml bowel sounds, No distention, Mass (U-2) Back: negative: CVA tenderness (R), CVA tenderness (L) Extremities: negative: Calf tenderness, Kit's sign/cords Neurologic/Psychiatric: positive: Oriented x3 Impression/Plan - Problem List Problem List: POD #1 excellent progress good pain control.
[2020-05-01] MEDS: IBUPROFEN 800 MG TABLET PO SCH ×2 (15:13→20:59)
[2020-05-02] MEDS: IBUPROFEN 800 MG TABLET PO SCH ×2 (03:35→09:36)
[2020-05-02] MEDS: ACETAMINOPHEN 500 MG TABLET PO SCH (07:51)
--- NOTE | 2020-05-02 08:49 | PROVIDER PROGRESS NOTE ---
Subjective - General Admit Date: 04/29/20 Procedure Date: 04/30/20 Post Op Days: 2 Procedure Performed: PLTC/S - Review of Systems Wound/Incisions: positive: Healing well (Pain 10. not taking oxycodone. breast feeding.), Dressing dry and intact (FUNCTIONING WELL) General: positive: No symptoms. negative: Fever Psychiatric: positive: No symptoms Objective - Patient Data Reviewed Vital Signs: Yes Vital Signs: Vital Signs x48h Temp Pulse Resp BP Pulse Ox 05/02/20 04:02 36.5 C 63 16 125/72 100 Intake & Output: Intake and Output Totals x24h 04/30/20 05/01/20 05/02/20 23:59 23:59 23:59 Intake Total 577 1650 Output Total 255 1850 Balance 322 -200 - Lab Results Lab Results: 05/01/20 05:34 04/29/20 09:04 - Current Medications Current Medications: Current Medications Generic Name Dose Route Start Last Admin Trade Name Freq PRN Reason Stop Dose Admin Acetaminophen 1,000 mg 04/30/20 14:00 05/02/20 07:51 Tylenol PO 1,000 mg Q8H EVANS Administration Diphenhydramine HCl 25 mg 05/01/20 00:49 05/01/20 05:37 Benadryl PO 25 mg Q4HR PRN Administration ITCHING Oxytocin/Sodium Chloride 500 mls @ 1 mls/hr 04/29/20 09:00 04/30/20 15:50 Pitocin/Sodium Chloride IV Not Given TITR EVANS Protocol 1 MILLIUNIT/MIN Lactated Ringer's 1,000 mls @ 100 mls/hr 04/29/20 09:00 04/30/20 17:02 Lr IV Infused .Q10H EVANS Infusion Oxytocin/Sodium Chloride 500 mls @ 1 mls/hr 04/29/20 22:00 04/29/20 23:20 Pitocin/Sodium Chloride IV 1 milliunit/min TITR EVANS 1 mls/hr Administration Protocol 1 MILLIUNIT/MIN Lactated Ringer's 1,000 mls @ 100 mls/hr 04/30/20 14:00 04/30/20 15:51 Lr IV Not Given .Q10H EVANS Oxytocin/Sodium Chloride 500 mls @ 50 mls/hr 04/30/20 13:30 04/30/20 13:33 Pitocin/Sodium Chloride IV 50 milliunit/min PRN PRN 50 mls/hr POST- HEMORR PREVENTION Administration Protocol 50 MILLIUNIT/MIN Ibuprofen 800 mg 05/01/20 14:00 05/02/20 03:35 Motrin PO 800 mg Q6H EVANS Administration Misoprostol 50 mcg 04/29/20 09:00 04/30/20 15:50 Cytotec BC Not Given Q4HR EVANS Sodium Chloride 10 ml 04/29/20 09:00 04/30/20 15:49 Normal Saline Flush 0.9% IVP 10 ml 0100,0900,1700 EVANS Administration - Physical Exam Wound/Incisions: positive: Dressing dry and intact General Appearance: positive: No acute distress, Alert Respiratory: positive: Chest non-tender, No respiratory distress, Breath sounds nml Cardiovascular: positive: Regular rate & rhythm, No murmur, No gallop Abdomen: positive: Non-tender Skin: positive: Color nml, No rash, Warm, Dry Extremities: negative: Calf tenderness, Kit's sign/cords Neurologic/Psychiatric: positive: Oriented x3 Impression/Plan - Problem List Problem List: POD #2 excellent progress. Send home. RTC 1 week GDM resolved. Discharge medications Oxycodone 5mg motrin 800 mg colace 100 mg. reviewed breast feeding. S/S of infection.
--- NOTE | 2020-05-02 08:53 | Discharge Plan ---
Discharge Plan Problem Reviewed?: Yes Disposition: Home, Self Care Condition: Good Diet: Regular Activity Restrictions: pelvic rest 6 weeks Weight Bearing: Full Weight No Smoking: If you smoke, Please STOP! Call for help.
[2020-05-02 08:54] VITALS: BP 124/55
--- NOTE | 2020-05-02 14:17 | Labor Flowsheet ---
Labor Flowsheet Datetime Report Generated by CPN: 05/02/2020 14:17 Datetime: 05/01/2020 08:05 VITAL SIGNS NBP Sys/Laury/Mean (mmHg): 103 : 57 : 67 Pulse: 69 Datetime: 05/01/2020 00:10 SpO2 (%): 98 Datetime: 04/30/2020 13:34 Respirations: 16 Datetime: 04/30/2020 13:33 Communication Comments: report received from PACU nurse Yola Datetime: 04/30/2020 13:32 Stage of : Recovery Datetime: 04/30/2020 11:34 UTERINE ACTIVITY Monitor Mode: Palpation Frequency (min): 2-4 Quality: Mild Pattern: Normal: <= 5 Contractions in 10 Minutes Resting Tone (Palpate): Relaxed Contraction Comments: left for OR ASSESSMENT A Monitor Mode: Telemetry FHR Baseline Rate : 160 Variability: Moderate 6-25 bpm Decelerations: None Category: Category I PATIENT CARE Oxygen Method: Room Air Datetime: 04/30/2020 11:30 Accelerations: None Comments: interrupted strip unable to determine dec/cat Datetime: 04/30/2020 11:23 Monitor Interventions for FHR: Ultrasound Adjusted Datetime: 04/30/2020 11:22 ANESTHESIA Anesthesia Comments: anesthesia in room Datetime: 04/30/2020 11:15 Duration (sec): 60-90 Datetime: 04/30/2020 10:46 COMMUNICATION Communication: Call/Page Placed to Provider Provider Notified (Name): Dr Giem Datetime: 04/30/2020 10:45 I/O Interventions: Up to BR Datetime: 04/30/2020 10:42 MEDICATIONS Pitocin (milliunits): Discontinued Medication Comments: per MD verbal order Datetime: 04/30/2020 10:41 Plan of Care: Plan of Care Discussed; C/S Delivery Teaching Comments: Both parents verbalized understanding and agree with c/s Datetime: 04/30/2020 10:33 Monitor Interventions for UA: [place] Adjusted Datetime: 04/30/2020 10:28 Patient Position/Activity: Left Lateral Patient Care Comments: peanut ball Datetime: 04/30/2020 10:20 Notification Reason: Status Update; Labor Status; Uterine Activity Datetime: 04/30/2020 09:24 LaborFlag: Labor Datetime: 04/30/2020 09:23 Pitocin Checklist: At Least 1 Acceleration of 15 bpm x 15 Seconds in 30 Minutes or Adequate Variabi lity; No More than 1 Late Deceleration Occurred in Past 30 Minutes; No More than 2 Variable Decelerat ions > 60 Seconds in Duration and decreasing >60 bpm in 30 minutes; No More than 5 Uterine Contractio ns in 10 Minutes for any 20 Minute Interval; Uterus Palpates Soft between Contractions Datetime: 04/30/2020 09:15 FHR Baseline Changes: No Baseline Change Datetime: 04/30/2020 08:19 VAGINAL EXAM Dilatation (cm): 5.5 Effacement (%): 75 Station: -2 Exam by: Dr. Witt Vaginal Bleeding: Normal Show Cervix, Consistency: Soft Datetime: 04/30/2020 07:25 Temperature (C): 36.9 Datetime: 04/30/2020 06:30 Vibroacoustic Stim: Datetime: 04/30/2020 05:00 Actions for Decelerations: Side to Side Datetime: 04/30/2020 04:31 Pain Coping: Talking Through Contractions Comfort Measures: Breathing/Relaxation Datetime: 04/30/2020 03:59 TEACHING Instructional Method: Verbal Datetime: 04/30/2020 01:30 Resting Tone IUP (mmHg): PAIN Pain Scale: 1 Pain Presence: Intermittent Pain Type: Contraction Datetime: 04/30/2020 01:00 MATERNAL ASSESSMENT Level of Consciousness: Alert DTR's/Clonus: DTRs 2+ Headache: Denies Breath Sounds, Left: Clear and Equal Breath Sounds, Right: Clear and Equal Nausea/Vomiting: Denies RUQ Epigastric Pain: Denies Datetime: 04/30/2020 00:35 Pain Location: Abdomen Datetime: 04/29/2020 19:28 Membrane Status: Intact Unit Routine: Monitoring Labor/Induction: Cervical Ripening Pain Management: Comfort Measures Datetime: 04/29/2020 18:23 Cervical Ripening Agents: Cytotec @ Datetime: 04/29/2020 18:17 Vaginal Exam Comments: fingertip Datetime: 04/29/2020 14:01 Cervix, Position: Posterior
--- NOTE | 2020-05-09 08:08 | DISCHARGE SUMMARY ---
Physician: Scott Witt MD DATE OF ADMISSION: 04/29/2020 DATE OF DISCHARGE: 05/02/2020 ADMITTING DIAGNOSES 1. A 34-year-old G1, P0, 39 weeks 2 days. 2. Gestational diabetes type A2. 3. Chronic hypertension. DISCHARGE DIAGNOSES 1. A 34-year-old G1, P0, 39 weeks 2 days. 2. Gestational diabetes type A2. 3. Chronic hypertension. 4. Recurrent late decelerations. 5. intolerance of labor. 6. Bandolier cord. PROCEDURES 1. Misoprostol cervical ripening. 2. Low-dose Pitocin. 3. Cook catheter, cervical ripening. 4. Pitocin induction. 5. Primary low transverse section. PRESENTING HISTORY: Patient is a 34-year-old 1, para 0. Her course was significan t in that she had gestational diabetes as well as chronic hypertension. Her gestational diabetes was difficult to control. She was initially started on metformin, then switched to insulin NPH 18 units but was also without good control. So for this reason, she was placed on both glyburide as well as metformin. With that she was able to achieve control of her diabetes. She also has a history of chr onic hypertension; however, during her course, her blood pressures stayed within the normal limits. She had early dating with an ultrasound at 6 weeks 6 days as well as confirmed last menstrua l period. She was on ASA antenatally to decrease the risk of preeclampsia. Her laboratories showed her to be A positive, rubella immune. Her STI check was all negative. Her hemoglobin A1c was 5.35. Her GBS was negative. She presented for cervical ripening and induction of labor on 04/29/2020. LABORATORIES CBC on admission showed a white count of 10.1, hemoglobin was 11.2, hematocrit 35.3. Her platelets w ere 274. Postop, her hemoglobin fell to 10.0, hematocrit was 32.5, platelets were 225. Chemistries on admission: Her creatinine was 0.5. Her AST and ALT were normal. Her uric acid was 4 .3. Her protein-creatinine ratio was 0.1. HOSPITAL COURSE: Patient was admitted on the , at which time she received misoprostol for cervic al ripening throughout the night. She was switched to Pitocin but was discontinued because of nursin g. She had the Pitocin restarted, and this did produce a category 2 strip. She had a Cook catheter placed for cervical ripening. Throughout her course, she would have episodes of late decelerations. She would also have episodes of good variability and reactivity interspersed with episodes of loss o f variability. Her blood sugars were noted to be within normal limits. At about 10 in the mor tc because of loss of variability, reactive tachycardia, repetitive late decelerations, it was deci ded to proceed on with section. This was performed without difficulty. At time of delivery , a live was encountered. There was a left bandolier cord, which would explain the late decel erations she was having and the intolerance of labor. Her postoperative course was unremarkabl e. Her blood sugars normalized. She was sent home on the second day postop. She was . We discussed the issues of contraception. She had a wound VAC, which was working well at this time . DISCHARGE MEDICATIONS 1. Oxycodone 5 mg. 2. Motrin 800 mg. 3. Colace 100 mg. She is instructed to follow up in the clinic in 1 week. TD: 05/08/2020 11:10
== END 2020-05-02 14:00 | disposition home or self-care (01) | DRG 787 ==
LOC: WFO 07:20 → FBP 07:24 → WFO 08:07 → FBP 08:08
PROVIDERS: ADMIT Obstetrics & Gynecology; ATTEND Obstetrics & Gynecology
PROC: 10D00Z1 Extraction of Products of Conception, Low, Open Approach (ICD-10-PCS; principal; 2020-04-29)
DX: O24.429 Gestational diabetes mellitus in childbirth, unspecified control (principal); O10.92 Unspecified pre-existing hypertension complicating childbirth; O76 Abnormality in fetal heart rate and rhythm complicating labor and delivery; O69.2XX0 Labor and delivery complicated by other cord entanglement, with compression, not applicable or unspecified; O32.8XX0 Maternal care for other malpresentation of fetus, not applicable or unspecified; Z37.0 Single live birth; Z3A.39 39 weeks gestation of pregnancy; Z79.84 Long term (current) use of oral hypoglycemic drugs; Z79.82 Long term (current) use of aspirin
CPT/HCPCS: 36415; 82565; 82570; 82947; 84156; 84450; 84460; 84550; 85025; 86850; 86900; 86901; A9270; J2274; J7120

== ENCOUNTER 2020-07-12 07:51 | Outpatient (CLI) | payer OTHER | END 2020-07-12 07:52 | disposition home or self-care (01) | LOC: LAB 07:51 | PROVIDERS: ATTEND Obstetrics & Gynecology | DX: O24.419 Gestational diabetes mellitus in pregnancy, unspecified control (principal) | CPT/HCPCS: 36415; 82951 ==

== ENCOUNTER 2020-08-29 08:00 | Outpatient (CLI) | payer OTHER | END 2020-08-29 23:59 | disposition home or self-care (01) | LOC: LAB.R 08:00 | PROVIDERS: ATTEND Pediatrics | DX: Z20.822 Contact with and (suspected) exposure to COVID-19 (principal) ==

== ENCOUNTER 2023-09-07 07:15 | Outpatient (CLI) | payer OTHER ==
--- NOTE | 2023-09-07 09:38 | XRAY Report ---
PROCEDURE: Chest 2V INDICATIONS: ASTHMA TECHNIQUE: 2 views of the chest were acquired. COMPARISON: None. FINDINGS: Surgical changes and devices: None. Lungs and pleura: No pleural effusions or pneumothorax. Lungs are clear. Peribronchial cuffing. Mediastinum: Mediastinal contours appear normal. Heart size is normal. Bones and chest wall: No suspicious bony lesions. Overlying soft tissues appear unremarkable. IMPRESSION: Peribronchial cuffing, suggestive of infectious or inflammatory bronchitis. No evidence of organizing pneumonia. Reviewed by: Dionisio Bates MD on 09/07/2023 9:37 AM PST Approved by: Dionisio Bates MD on 09/07/2023 9:37 AM PST Station ID: [id number]
== END 2023-09-07 07:30 | disposition home or self-care (01) ==
LOC: DI.N 07:15
PROVIDERS: ATTEND Physician Assistant
DX: J45.909 Unspecified asthma, uncomplicated (principal)